=== PATIENT | female | born 1965 | race Caucasian/White ===

== ENCOUNTER 2017-04-25 22:15 | Emergency (ER) | payer OTHER ==
[~2017-04-25] VITALS: Ht 172.7 cm; Wt 9.0 kg
[2017-04-25 22:32] VITALS: TEMP 36.8; Ht 172.7 cm; Wt 9.0 kg
--- NOTE | 2017-04-25 23:04 | EMERGENCY ROOM VISIT NOTE ---
History Report prepared by Mary Jo: Venus Hicks Under the Supervision of: Dr. Alfredito Ricci M.D. First contact with patient: 22:56 Chief Complaint: FLANK PAIN Stated Complaint: R FLANK PAIN History of Present Illness The patient is a 51 year old female who presents to the Emergency Room with complaints of worsening right sided flank pain. She rates her discomfort as a 9/ 10 in severity. She admits to minor dysuria. She denies any abdominal pain. The patient denies any personal history of kidney stones. She also reports since December 2016, she has not had her menstrual period. Source of History: patient Onset: [employer] Position: back (right sided back) Symptom Intensity: 9/10 Timing: worsening Associated Symptoms: + urinary symptoms, No abdominal pain Review of Systems See HPI for pertinent positives & negatives. A total of 10 systems reviewed and were otherwise negative. Social History Smoking Status: Never Smoker Current/Historical Medications Scheduled Sulfa/Trimethoprim (Bactrim Ds 800MG/160MG), 1 TAB PO BID Scheduled PRN Oxycodone/Acetaminophen 5MG/325MG (Percocet 5MG/325MG), 1-2 TAB PO Q4H PRN for Pain Allergies Coded Allergies: No Known Allergies (Unverified , 04/25/17) Physical Exam Vital Signs Date Time Temp Pulse Resp B/P (MAP) Pulse Ox O2 Delivery O2 Flow Rate FiO2 04/26/17 01:39 100 20 140/84 97 04/26/17 00:30 108 20 152/91 98 Room Air 04/25/17 22:32 36.8 105 20 156/94 97 Room Air Physical Exam GENERAL: Patient is a healthy-appearing well-nourished 51 year old female HEAD: Normocephalic atraumatic EYES: Ocular movements intact pupils equal and react to light OROPHARYNX mucous membranes are moist no exudates present no erythema or edema present NECK: Supple no nuchal rigidity CHEST: Good equal expansion LUNGS: Clear and equal to auscultation CARDIAC: Normal S1 and S2 ABDOMEN: Soft nontender no guarding BACK: Right sided CVA tenderness EXTREMITIES: No pain upon palpation normal muscle strength in all groups no clubbing cyanosis or edema NEURO: Patient is following commands and answering questions appropriately. Alert and oriented x3 Cranial Nerves 2-12 grossly intact Medical Decision & Procedures ER Provider Diagnostic Interpretation: CT SCAN OF THE ABDOMEN AND PELVIS WITHOUT CONTRAST CLINICAL HISTORY: Right flank pain COMPARISON STUDY: No previous studies for comparison. TECHNIQUE: CT scan of the abdomen and pelvis was performed from the lung bases to the proximal femurs. Images are reviewed in the axial, sagittal, and coronal planes. IV contrast was not administered for this examination. A dose lowering technique was utilized adhering to the principles of ALARA. CT DOSE: 1686.87 mGy.cm FINDINGS: Lower chest: There are bibasilar dependent atelectatic changes Liver: The unenhanced liver is normal in size, contour, and attenuation. There is no intrahepatic biliary ductal dilatation. Gallbladder: Unremarkable. Spleen: This too small to characterize 8 mm hypodensity within the anterior aspect of the spleen. Pancreas: Unremarkable. Adrenal glands: Unremarkable. Kidneys: No renal, ureteral, or bladder calculi are visualized. 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 There is no acute diverticulitis. The appendix appears normal. Peritoneum: There is no intraperitoneal free air or abdominal ascites. Vasculature: The abdominal aorta is normal in course and caliber. Adenopathy: None. Pelvic viscera: The bladder, and pelvic viscera are unremarkable. Skeletal structures: There is right symphysis sclerosis. No destructive lesions are visualized. IMPRESSION: 1. No acute intra-abdominal or pelvic findings. 2. No evidence of bowel obstruction. No evidence of free air 3. Normal appendix 4. No renal, ureteral, or bladder calculi identified. Laboratory Results 04/25/17 23:30 Red Blood Count 4.93, Mean Corpuscular Volume 89.2, Mean Corpuscular Hemoglobin 30.6, Mean Corpuscular Hemoglobin Concent 34.3, Mean Platelet Volume 9.4, Neutrophils (%) (Auto) 59.1, Lymphocytes (%) (Auto) 30.7, Monocytes (%) (Auto) 8.5, Eosinophils (%) (Auto) 1.3, Basophils (%) (Auto) 0.2, Neutrophils # (Auto) 4.85, Lymphocytes # (Auto) 2.52, Monocytes # (Auto) 0.70, Eosinophils # (Auto) 0.11, Basophils # (Auto) 0.02 04/25/17 23:30 Test 04/25/17 23:10 04/25/17 23:30 Urine Color YELLOW Urine Appearance CLEAR (CLEAR) Urine pH 5.0 (4.5-7.5) Urine Specific [place] 1.019 (1.000-1.030) Urine Protein NEG (NEG) Urine Glucose (UA) NEG (NEG) Urine Ketones NEG (NEG) Urine Occult Blood TRACE (NEG) Urine Nitrite NEG (NEG) Urine Bilirubin NEG (NEG) Urine Urobilinogen NEG (NEG) Urine Leukocyte Esterase TRACE (NEG) Urine WBC (Auto) 1-5 /hpf (0-5) Urine RBC (Auto) 5-10 /hpf (0-4) Urine Hyaline Casts (Auto) 1-5 /lpf (0-5) Urine Epithelial Cells (Auto) >30 /lpf (0-5) Urine Bacteria (Auto) NEG (NEG) Urine Test NEG (NEG) White Blood Count 8.22 K/uL (4.8-10.8) Red Blood Count 4.93 M/uL (4.2-5.4) Hemoglobin 15.1 g/dL (12.0-16.0) Hematocrit 44.0 % (37-47) Mean Corpuscular Volume 89.2 fL (80-100) Mean Corpuscular Hemoglobin 30.6 pg (25-34) Mean Corpuscular Hemoglobin Concent 34.3 g/dl (32-36) Platelet Count 277 K/uL (130-400) Mean Platelet Volume 9.4 fL (7.4-10.4) Neutrophils (%) (Auto) 59.1 % Lymphocytes (%) (Auto) 30.7 % Monocytes (%) (Auto) 8.5 % Eosinophils (%) (Auto) 1.3 % Basophils (%) (Auto) 0.2 % Neutrophils # (Auto) 4.85 K/uL (1.4-6.5) Lymphocytes # (Auto) 2.52 K/uL (1.2-3.4) Monocytes # (Auto) 0.70 K/uL (0.11-0.59) Eosinophils # (Auto) 0.11 K/uL (0-0.5) Basophils # (Auto) 0.02 K/uL (0-0.2) RDW Standard Deviation 40.4 fL (36.4-46.3) RDW Coefficient of Variation 12.6 % (11.5-14.5) Immature Granulocyte % (Auto) 0.2 % Immature Granulocyte # (Auto) 0.02 K/uL (0.00-0.02) Anion Gap 9.0 mmol/L (3-11) Est Creatinine Clear Calc Drug Dose 10.3 ml/min Estimated GFR () 83.6 Estimated GFR (Non- 72.1 BUN/Creatinine Ratio 15.3 (10-20) Calcium Level 8.9 mg/dl (8.5-10.1) Total Bilirubin 0.5 mg/dl (0.2-1) Direct Bilirubin < 0.1 mg/dl (0-0.2) Aspartate Amino Transf (AST/SGOT) 14 U/L (15-37) Alanine Aminotransferase (ALT/SGPT) 27 U/L (12-78) Alkaline Phosphatase 79 U/L (45-117) Total Protein 7.8 gm/dl (6.4-8.2) Albumin 3.7 gm/dl (3.4-5.0) Lipase 267 U/L (73-393) Human Chorionic Gonadotropin, Quant < 1 mIU/mL Labs reviewed by ED physician. Medications Administered Medications (Trade) Dose Ordered Sig/Ignacio Route Start Time Stop Time Status Last Admin Dose Admin Sodium Chloride 1,000 ml @ 999 mls/hr Q1H1M STAT IV 04/25/17 23:07 04/26/17 00:07 DC 04/25/17 23:07 999 MLS/HR Ketorolac Tromethamine (Toradol Inj) 30 mg NOW STAT IV 04/25/17 23:07 04/25/17 23:10 DC 04/25/17 23:41 30 MG Ondansetron HCl (Zofran Inj) 4 mg NOW STAT IV 04/25/17 23:07 04/25/17 23:10 DC 04/25/17 23:40 4 MG Hydromorphone HCl (Dilaudid Inj) 0.5 mg NOW STAT IV 04/25/17 23:07 04/25/17 23:10 DC 04/25/17 23:41 0.5 MG Ceftriaxone Sodium (Rocephin Inj) 1 gm NOW STAT IV 04/26/17 00:39 04/26/17 00:41 DC 04/26/17 00:53 1 GM Trimethoprim/ Sulfamethoxazole (Sulfameth/ Trimeth Ds 800/ 160MG Home Pack) 1 homepack UD ONCE PO 04/26/17 00:45 04/26/17 00:46 DC 04/26/17 01:04 1 [place] Oxycodone/ Acetaminophen (Percocet 5/ 325MG Home Pack) 1 homepack UD ONCE PO 04/26/17 00:45 04/26/17 00:46 DC 04/26/17 01:04 1 [place] Course 2300: Past medical records reviewed. The patient was evaluated in room C7. A complete history and physical examination was performed. 2307: Dilaudid .5 mg IV, Zofran 4 mg IV, Toradol 30 mg IV, NSS 1000 ml @ 999 mls /hr IV. Medical Decision Prior records/ancillary studies reviewed. Triage Nursing notes reviewed. The patient's history was concerning for abdominal pain. Differential diagnosis: Etiologies such as appendicitis, diverticulitis, PUD, biliary pathology, UTI, pancreatitis, obstruction, mesenteric ischemia, aortic pathology, infections, inflammatory bowel disease, renal colic, as well as others were entertained. This is a 51-year-old female who presents emergency department over concerns that she is as well as flank pain. The patient has a negative test both [facility] urine as well as serum. She does have hematuria in her urine. CAT scan of the abdomen and pelvis does not show any acute process. It is possible that the patient is passing a very fine kidney stone. An IV was established, the patient given normal saline bolus. Repeat examination revealed improvement the patient's symptoms. I do feel that the patient as well as to be discharged home for follow-up with urology. Patient was in agreement with the treatment plan. Impression Primary Impression: Right flank pain Scribe Attestation The scribe's documentation has been prepared under my direction and personally reviewed by me in its entirety. I confirm that the note above accurately reflects all work, treatment, procedures, and medical decision making performed by me. Departure Information Dispostion Home / Self-Care Prescriptions Sulfa/Trimethoprim (Bactrim Ds 800MG/160MG) Tab 1 TAB PO BID for 7 Days, #14 TAB Prov: Alfredito Ricci MD 04/26/17 Oxycodone/Acetaminophen 5MG/325MG (PERCOCET 5MG/325MG) Tab 1-2 TAB PO Q4H Y for Pain, #14 TAB Prov: Alfredito Ricci MD 04/26/17 Referrals No Doctor, Assigned (PCP) Patient Instructions My [facility]
[2017-04-25] MEDS ORDERED: SODIUM CHLORIDE 0.9% 1000ML 1,000 ML IV STA (23:07)
[2017-04-25] MEDS ORDERED: HYDROmorphone INJ 0.5 MG/0.5 ML SYR IV STA (23:07)
[2017-04-25] MEDS ORDERED: KETOROLAC TROMETHAMINE 30 MG/ML VIAL IV STA (23:07)
[2017-04-25] MEDS ORDERED: ONDANSETRON INJ 2 MG/ML 2 ML VIAL IV STA (23:07)
[2017-04-25 23:44] LABS: BASO % 0.2 %; BASO ABS # 0.02 K/uL (0-0.2); COMPLETE YES; EOS % 1.3 %; IG% 0.2 %; LYMPH % 30.7 %; LYMPH ABS # 2.52 K/uL (1.2-3.4); MEAN CELL VOLUME 89.2 fL (80-100); MEAN CORPUSCULAR HEMOGLOBIN 30.6 pg (25-34); MEAN CORPUSCULAR HGB CONC 34.3 g/dl (32-36); MEAN PLATELET VOLUME 9.4 fL (7.4-10.4); MONO % 8.5 %; NEUT % 59.1 %; PLATELET COUNT 277 K/uL (130-400); RED BLOOD COUNT 4.93 M/uL (4.2-5.4); WHITE BLOOD COUNT 8.22 K/uL (4.8-10.8)
[2017-04-25 23:46] LABS: URINE APPEARANCE CLEAR (CLEAR); URINE BILIRUBIN NEG (NEG); URINE COLOR YELLOW; URINE EPITHELIAL CELL AUTO >30 /lpf (0-5); URINE NITRITE NEG (NEG); URINE SPECIFIC GRAVITY 1.019 (1.000-1.030); UROBILINOGEN NEG (NEG)
[2017-04-25 23:49] LABS: MANUAL MICROSCOPIC REQUIRED? NO; REVIEW REQ? NO
[2017-04-26 00:05] LABS: ALT/SGPT 27 U/L (12-78); AST/SGOT 14 U/L (15-37); BLOOD UREA NITROGEN 14 mg/dl (7-18); BUN/CREATININE RATIO 15.3 (10-20); CALCIUM 8.9 mg/dl (8.5-10.1); CARBON DIOXIDE 28 mmol/L (21-32); CHLORIDE 106 mmol/L (98-107); CREATININE 0.92 mg/dl (0.60-1.20); GLUCOSE 93 mg/dl (70-99); POTASSIUM 3.4 mmol/L (3.5-5.1); SODIUM 143 mmol/L (136-145)
[2017-04-26 00:08] LABS: ALKALINE PHOSPHATASE 79 U/L (45-117)
[2017-04-26] MEDS ORDERED: CEFTRIAXONE SOD INJ 1 GM ADDVIAL IV STA (00:39)
[2017-04-26] MEDS ORDERED: PERCOCET HOME PACK PO ONE (00:45)
[2017-04-26] MEDS ORDERED: SEPTRA DS HOME PACK 1 EA VIAL PO ONE (00:45)
[2017-04-26] MEDS ORDERED: SULF800T23 PO (00:51)
[2017-04-26] MEDS ORDERED: OXYC-57 PO (00:51)
[2017-04-26 01:39] VITALS: BP 140/84; PULSE 100; O2SAT 97
--- NOTE | 2017-04-26 06:38 | DIAGNOSTIC IMAGING REPORT ---
CT SCAN OF THE ABDOMEN AND PELVIS WITHOUT CONTRAST CLINICAL HISTORY: Right flank pain COMPARISON STUDY: No previous studies for comparison. TECHNIQUE: CT scan of the abdomen and pelvis was performed from the lung bases to the proximal femurs. Images are reviewed in the axial, sagittal, and coronal planes. IV contrast was not administered for this examination. A dose lowering technique was utilized adhering to the principles of ALARA. CT DOSE: 1686.87 mGy.cm FINDINGS: Lower chest: There are bibasilar dependent atelectatic changes Liver: The unenhanced liver is normal in size, contour, and attenuation. There is no intrahepatic biliary ductal dilatation. Gallbladder: Unremarkable. Spleen: This too small to characterize 8 mm hypodensity within the anterior aspect of the spleen. Pancreas: Unremarkable. Adrenal glands: Unremarkable. Kidneys: No renal, ureteral, or bladder calculi are visualized. 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 There is no acute diverticulitis. The appendix appears normal. Peritoneum: There is no intraperitoneal free air or abdominal ascites. Vasculature: The abdominal aorta is normal in course and caliber. Adenopathy: None. Pelvic viscera: The bladder, and pelvic viscera are unremarkable. Skeletal structures: There is right symphysis sclerosis. No destructive lesions are visualized. IMPRESSION: 1. No acute intra-abdominal or pelvic findings. 2. No evidence of bowel obstruction. No evidence of free air 3. Normal appendix 4. No renal, ureteral, or bladder calculi identified. Electronically signed by: Reji Garcia M.D. 04/26/2017 6:37 AM Dictated Date/Time: 04/26/2017 6:34 AM
== END 2017-04-26 01:43 | disposition home or self-care (01) ==
LOC: C.EDB 22:17 → C.EDC 04-26 01:43
DX: R10.9 Unspecified abdominal pain (principal)

== ENCOUNTER 2017-08-17 09:23 | Emergency (ER) | payer OTHER ==
[~2017-08-17] VITALS: Ht 172.7 cm; Wt 112.9 kg
[~2017-08-17 09:23] MED LIST: OXYC-57 PO
[2017-08-17 09:27] VITALS: TEMP 36.5; Ht 172.7 cm; Wt 112.9 kg
--- NOTE | 2017-08-17 09:53 | EMERGENCY ROOM VISIT NOTE ---
History Report prepared by Mary Jo: Shiela Alcantar Under the Supervision of: Dr. Theodore Hull M.D. First contact with patient: 09:31 Chief Complaint: KNEEPAIN Stated Complaint: L KNEE PAIN, [place]ARP History of Present Illness The patient is a 52 year old female who presents to the Emergency Room with complaints of constant left knee pain secondary to a fall occurring yesterday. The patient was walking down a hill and slipped on the ice. She fell and injured her left knee. She denies any other injury occurring. She denies LOC or hitting her head. The patient is currently complaining of pain in her left knee that she rates as a 7/10 in severity. Movement exacerbates her pain. She states that occasionally the pain shoots down her leg. The history was obtained with the help of the patient's daughter is translating for the patient. Source of History: patient, family Onset: yesterday Position: knee (left) Symptom Intensity: 7/10 Quality: other (shooting) Timing: constant Modifying Factors (Worsening): movement Associated Symptoms: No LOC Review of Systems See HPI for pertinent positives and negatives. A total of ten systems were reviewed and were otherwise negative. Past Medical & Surgical Medical Problems: (1) No significant medical problems Family History Patient reports no known family medical history. Social History Smoking Status: Never Smoker Smokeless Tobacco Use: No Alcohol Use: none Drug Use: none Housing Status: lives with family Occupation Status: employed Current/Historical Medications Scheduled PRN Ibuprofen (Motrin), 800 MG PO UD PRN for Pain Allergies Coded Allergies: No Known Allergies (Unverified , 08/17/17) Physical Exam Vital Signs Date Time Temp Pulse Resp B/P (MAP) Pulse Ox O2 Delivery O2 Flow Rate FiO2 08/17/17 09:27 36.5 78 18 155/82 96 Room Air Physical Exam Physical Exam GENERAL: She is oriented to person, place, and time. She appears well- developed and well-nourished. She does not appear distressed. HENT: Exam performed. Head: Normocephalic and atraumatic. Right Ear: External ear normal. No mastoid tenderness. Left Ear: External ear normal. No mastoid tenderness. Mouth/Throat: The oropharynx is clear and moist. No trismus in the jaw. No dental abscesses or uvula swelling. No oropharyngeal exudate or tonsillar abscesses. EYES: Conjunctivae and EOM are normal. Pupils are equal, round, and reactive to light. Right eye exhibits no discharge. Left eye exhibits no discharge. No scleral icterus. NECK: Normal range of motion. Neck supple. No JVD present. No spinous process tenderness present. No carotid bruit present. No rigidity. No tracheal deviation and normal range of motion present. No Brudzinski's sign and no Kernig 's sign noted. CV: Normal rate, regular rhythm, normal heart sounds and intact distal pulses. There is no peripheral edema. Palpable radial pulses bue. PULM/CHEST: Effort normal and breath sounds normal. No respiratory distress. No stridor. She has no wheezes. She has no rales. Chest Wall: She exhibits no tenderness. ABD: The abdomen is soft. Bowel sounds are normal. She has no distension. No mass is present. There is no tenderness. There is no rebound, no guarding, no Walsh's sign and no tenderness at McBurney's point. Rovsig negative MUSC/SKEL: Left knee - Frandy negative, posterior drawer negative, Philippe positive, valgus stress positive, stress pain on palpation of medial knee. Right knee- FROM no pain on palpation pelvis stable palpable dp pulses ble LYMPH: No cervical adenopathy. NEURO: She is alert and oriented to person, place, and time. She has normal strength. No cranial nerve deficit or sensory deficit. Coordination and gait normal. GCS eye subscore is 4. GCS verbal subscore is 5. GCS motor subscore is 6. cerbellar tests wnl. SKIN: Skin is warm and dry. She is not diaphoretic. PSYCH: She has a normal mood and affect. Her behavior is normal. Judgment and thought content normal. Medical Decision & Procedures ER Provider Diagnostic Interpretation: Radiology results as stated below per my review and radiologist interpretation: L KNEE 4 OR MORE VIEWS CLINICAL HISTORY: Knee pain status post trauma COMPARISON: None. DISCUSSION: No acute fractures or dislocations are visualized. There is no radiographic evidence of significant joint effusion. IMPRESSION: No fractures identified. Electronically signed by: Reji Garcia M.D. 08/17/2017 10:07 AM Dictated Date/Time: 08/17/2017 10:06 AM ED Course 0931: The patient was evaluated in room B4B. A complete history and physical exam was performed. 1016: I reassessed the patient at this time. She is feeling better and resting comfortably. I discussed the results and treatment plan with the patient and her daughter. I answered all pertaining questions that they had. They expressed understanding and verbalized agreement. The patient will be discharged home. Medical Decision Vital signs stable. Xrays negative. Patient placed in knee inmmobilizer discharged with follow-up orthopedics. Instructed to ice Q4 hours and Motrin as needed for pain. DISCHARGE - Plan of care discussed with family and questions answered. The family was given both verbal and printed discharge instructions. The family verbalized understanding and ability to comply. The family is to seek outpatient follow up as noted in the discharge instructions. The family verbalized understanding and ability to comply. The family is discharged in stable condition. The family was instructed to return for worsening symptoms. Medication Reconcilliation Current Medication List: was personally reviewed by me Blood Pressure Screening Patient's blood pressure: Elevated blood pressure Blood pressure disposition: Elevated BP felt to be situational Impression Primary Impression: Knee pain Scribe Attestation The scribe's documentation has been prepared under my direction and personally reviewed by me in its entirety. I confirm that the note above accurately reflects all work, treatment, procedures, and medical decision making performed by me. The scribe's documentation has been prepared under my direction and personally reviewed by me in its entirety. I confirm that the note above accurately reflects all work, treatment, procedures, and medical decision making performed by me. insert Departure Information Dispostion Home / Self-Care Referrals Tavares Red MD (PCP) Mason Hewitt, DO Forms HOME CARE DOCUMENTATION FORM, IMPORTANT VISIT INFORMATION Patient Instructions ED Immobilizer Knee, My [facility] Problem Qualifiers Primary Impression: Knee pain Chronicity: acute Laterality: unspecified laterality Qualified Codes: M25.569 - Pain in unspecified knee
[2017-08-17] MEDS ORDERED: IBUP-1428 PO (09:54)
--- NOTE | 2017-08-17 10:09 | DIAGNOSTIC IMAGING REPORT ---
L KNEE 4 OR MORE VIEWS CLINICAL HISTORY: Knee pain status post trauma COMPARISON: None. DISCUSSION: No acute fractures or dislocations are visualized. There is no radiographic evidence of significant joint effusion. IMPRESSION: No fractures identified. Electronically signed by: Reji Garcia M.D. 08/17/2017 10:07 AM Dictated Date/Time: 08/17/2017 10:06 AM
[2017-08-17 10:30] VITALS: BP 176/92; PULSE 77; O2SAT 97
== END 2017-08-17 10:31 | disposition home or self-care (01) ==
LOC: C.EDB 09:25
DX: M25.562 Pain in left knee (principal); W00.0XXA Fall on same level due to ice and snow, initial encounter

== ENCOUNTER 2024-10-11 18:54 | Inpatient (IN) ==
[2024-10-11 19:28] LABS: Basophils # (auto) 0.04 K/uL (0.00-0.20); Basophils % (auto) 0.6 %; Eosinophils # (auto) 0.03 K/uL (0.00-0.50); Eosinophils % (auto) 0.4 %; Hematocrit (blood only) 41.6 % (37.0-47.0); Hemoglobin 14.5 g/dl (12.0-16.0); Immature Granulocytes # (auto) 0.03 K/uL (0.01-0.20); Immature Granulocytes % (auto) 0.4 %; Lymphocytes # (auto) 1.61 K/uL (1.20-3.40); Lymphocytes % (auto) 23.3 %; Mean Corpuscular Hemoglobin 31.3 pg (25.0-34.0); Mean Corpuscular Hgb Conc 34.9 g/dL (32.0-36.0); Mean Corpuscular Volume 89.7 fL (80.0-100.0); Mean Platelet Volume 9.4 fL (9.4-12.4); Monocytes # (auto) 0.78 K/uL (0.11-0.59); Monocytes % (auto) 11.3 %; Neutrophils # (auto) 4.41 K/uL (1.40-6.50); Platelet Count 340 K/uL (130-400); RDW Coefficient of Variation 12.1 % (11.5-14.5); RDW Standard Deviation 39.5 fL (36.4-46.3); Red Blood Count 4.64 M/uL (4.20-5.40)
--- NOTE | 2024-10-11 19:35 | Emergency Department Note ---
Impression & Plan Chest pain, DUGAN (dyspnea on exertion), Weakness, Hypokalemia, Heart palpitations ED Provider Note Provider: Brock Noble MD CHIEF COMPLAINT: Short of breath, elevated heart rate, leg swelling HISTORY OF PRESENT ILLNESS: Patient is a 59-year-old female history of diastolic dysfunction, prediabetes, obesity presenting here today for by the primary care office. Was seen here last week with workup showing some hypokalemia. Has had continued shortness of breath and over last 2 days development of central chest discomfort as well as elevated heart rates in the 120s and generalized weakness. States has had some swelling of her legs but the left 1 pill a bit worse. Denies any falls or syncope. No fevers reported. No significant abdominal pain reported. Did complete potassium supplementation and finished this 2 days ago. Had blood work today in the outpatient setting showing continued low potassium levels. Her doctor wanted her to come back in for further care here but she had to go home and see her granddaughter briefly for her 10th birthday and then came here. States she feels like she is going to . Did attempt to use [place] translation services however after more than 15 minutes no gizzard puller was available on the electronic system. Patient agreed with her limited [place]ian and additional motions to continue as is. Reviewed office note. PAST MEDICAL HISTORY: As noted above MEDICATIONS: Reviewed home medications SOCIAL HISTORY: Lives at home by herself PHYSICAL EXAM: GENERAL: alert and oriented in no acute distress on stretcher Head: normocephalic and atraumatic EYES: No injection, discharge or icterus. PERRL, EOMI. NECK: Trachea midline. Supple. ENT: Mucous membranes pink and moist. Pharynx without erythema or exudate. LUNGS: Airway patent. No retractions. Breath sounds diminished bases but otherwise clear HEART: Regular tachycardic rate and rhythm. No chest wall tenderness ABDOMEN: Soft and non-tender, without guarding or rebound. SKIN: Acyanotic, warm, dry, without rashes EXTREMITIES: Without deformity with 1+ bilateral lower leg edema. No significant wounds noted or weeping. NEUROLOGICAL: No focal deficits. No aphasia. No facial droop or slurred speech. Ambulatory. EK bpm sinus tachycardia. No PVC or PAC. No acute ST segment elevation or depression with QTc of 458. CONTINUOUS CARDIAC MONITORING: was ordered and showed a heart rate of 100s-120s bpm in sinus tachycardia Patient's laboratory studies and imaging reviewed. Differential includes Infection, dehydration, metabolic abnormality, hypo/hyperglycemia, electrolyte disturbance, anemia, hypoxia, cardiac sources, PE, pneumonia, heart failure/fluid overload, DVT, neurologic, as well as other pathologies. IMPRESSION/MEDICAL DECISION MAKING: Reviewed workup from last week. CT of the chest at time of finding of PE. Similar symptoms now little bit of chest discomfort. EKG without STEMI. Is somewhat tachycardic. Does have some swelling of the lower legs. Ultrasound here to exclude DVT. No believe any repeat CTA at this time. Not hypoxic. COVID flu RSV testing sent but did have full respiratory panel last week that was negative. Is continued to be somewhat hypokalemic. Given oral and IV potassium replacement. Chest x-ray as a possible little bit of pulmonary vascular congestion by radiology. Do question if she is having again some heart failure issues and fluid overload. Given her significant symptoms, discussed further care at the hospital and further cardiac evaluation. Blood work here without severe anemia or leukocytosis. Normal troponin. BNP not severely elevated but will trial a dose of Lasix here. Discussed with the hospitalist team for further care. DIAGNOSIS: Atypical chest pain, shortness of breath, hypokalemia DISPOSITION: Hospitalist will evaluate Patient was agreeable with this plan. Past Med/Surg History Problem List (Updated 10/11/24 @ 20:27 by Brock Noble M.D.) Heart palpitations (Acute) Chest pain (Acute) Hypokalemia (Acute) Tachycardia (Acute) Weakness (Acute) DUGAN (dyspnea on exertion) (Acute) Medical History Obesity Surgical History H/O tubal ligation Social History Smoking Status: Never smoker Preferred Language: [place] Communication Tools: IPad Feels Safe at Home: Yes Allergies Allergies Allergy/AdvReac Type Severity Reaction Status Date / Time No Known Allergies Allergy Verified 10/02/24 15:34 Home Meds Home Medications Medication Instructions Recorded Confirmed losartan 50 mg tablet 50 mg PO DAILY 12/27/20 10/11/24 rosuvastatin 20 mg tablet 20 mg PO DAILY 12/27/20 10/11/24 hydrochlorothiazide 25 mg tablet 25 mg PO DAILY 10/02/24 10/11/24 tirzepatide (weight loss) 7.5 7.5 mg subcut WK 10/02/24 10/11/24 mg/0.5 mL subcutaneous pen injector (Zepbound) Previous Rx's Medication Instructions Recorded albuterol sulfate 90 mcg/actuation 2 inh inhalation Q6H #18 grams 10/02/24 aerosol inhaler potassium chloride 20 mEq 20 meq PO DAILY #7 tabs 10/02/24 tablet,extended release Results & Data (ED) Vital Signs Vital Signs - 24 hr 10/11/24 18:54 10/11/24 18:57 10/11/24 19:05 Temperature 37 C Temperature Source Temporal Artery Scan Pulse Rate 113 H Pulse Rate [Right Brachial] Pulse Rhythm Regular Pulse Rhythm [Right Brachial] Pulse Strength Normal Pulse Strength [Right Brachial] Respiratory Rate 22 Respiratory Effort / Characteristics Non-Labored Spontaneous Respiratory Depth Normal Respiratory Pattern Regular Blood Pressure 126/65 Blood Pressure [Right Arm] Blood Pressure Mean 85 Blood Pressure Mean [Right Arm] Blood Pressure Position Sitting Blood Pressure Position [Right Arm] Pulse Oximetry 96 Oxygen Delivery Method Room Air Room Air Room Air Sepsis Recent Fever Within 48 Hours No Sepsis New/Unexplained Change in Mental Status N/A Sepsis Action Taken by Nursing No Action Required 10/11/24 19:05 10/11/24 19:24 10/11/24 20:54 Temperature Temperature Source Pulse Rate 108 H Pulse Rate [Right Brachial] 108 H Pulse Rhythm Pulse Rhythm [Right Brachial] Regular Pulse Strength Pulse Strength [Right Brachial] Normal Respiratory Rate 18 Respiratory Effort / Characteristics Non-Labored Respiratory Depth Normal Respiratory Pattern Regular Blood Pressure Blood Pressure [Right Arm] 130/99 Blood Pressure Mean Blood Pressure Mean [Right Arm] 109 Blood Pressure Position Blood Pressure Position [Right Arm] Sitting Pulse Oximetry 98 96 Oxygen Delivery Method Room Air Room Air Sepsis Recent Fever Within 48 Hours Sepsis New/Unexplained Change in Mental Status Sepsis Action Taken by Nursing Laboratory Data 10/11/24 19:15 10/11/24 19:15 Lab Results 10/11/24 Range/Units 19:15 WBC 6.90 (4.8-10.8) K/ul RBC 4.64 (4.20-5.40) M/uL Hgb 14.5 (12.0-16.0) g/dl Hct 41.6 (37.0-47.0) % MCV 89.7 (80.0-100.0) fL MCH 31.3 (25.0-34.0) pg MCHC 34.9 (32.0-36.0) g/dL RDW Std Deviation 39.5 (36.4-46.3) fL RDW Coeff of Abi 12.1 (11.5-14.5) % Plt Count 340 (130-400) K/uL MPV 9.4 (9.4-12.4) fL Immature Gran % (Auto) 0.4 % Neut % (Auto) 64.0 % Lymph % (Auto) 23.3 % [place] % (Auto) 11.3 % Eos % (Auto) 0.4 % Baso % (Auto) 0.6 % Neut # (Auto) 4.41 (1.40-6.50) K/uL Lymph # (Auto) 1.61 (1.20-3.40) K/uL [place] # (Auto) 0.78 H (0.11-0.59) K/uL Eos # (Auto) 0.03 (0.00-0.50) K/uL Baso # (Auto) 0.04 (0.00-0.20) K/uL Immature Gran # (Auto) 0.03 (0.01-0.20) K/uL PT 10.5 (9.0-12.0) Seconds INR 1.0 (0.9-1.1) APTT 26 (21-31) Seconds PTT Ratio 1.0 D-Dimer 860 H* (0-500) ug/L FEU Sodium 137 (136-145) mmol/L Potassium 2.9 L (3.5-5.1) mmol/L Chloride 100 (98-107) mmol/L Carbon Dioxide 28 (21-32) mmol/L Anion Gap 9 (3-11) BUN 8 (6-23) mg/dl Creatinine 0.95 (0.6-1.2) mg/dl Est Cr Clr Drug Dosing 90.6 ml/min eGFR 69.02 BUN/Creatinine Ratio 8.4 L (10-20) Glucose 149 H (70-99(Fasting)) mg/dl Calcium 9.2 (8.6-10.3) mg/dl Total Bilirubin 0.8 (0.2-1.0) mg/dl AST 40 H (13-39) U/L ALT 44 (7-52) U/L Alkaline Phosphatase 62 (34-104) U/L Troponin I High Sens 6.5 (0-14) pg/ml B-Natriuretic Peptide 5 (0-100) pg/ml Total Protein 6.9 (6.0-8.3) gm/dl Albumin 3.9 (3.4-5.0) gm/dl Globulin 3.0 (2.5-4.0) gm/dl Albumin/Globulin Ratio 1.3 (0.9-2) Administered Medications Potassium Chloride (Potassium Chloride Crtab 20 Meq Tabcr) 40 meq PO TID EULALIO Stop: 10/12/24 21:01 Last Admin: 10/11/24 23:04 Dose: 40 meq Documented By: RODDY Discontinued Medications Furosemide (Furosemide Inj 20 Mg/2 Ml Vial) 20 mg IV ONE ONE Stop: 10/11/24 20:27 Last Admin: 10/11/24 21:21 Dose: 20 mg Documented By: RODDY Potassium Chloride (K Prashanth / Wtr) 10 meq in 100 mls @ 100 mls/hr IV ONE ONE Stop: 10/11/24 20:47 Last Infusion: 10/11/24 21:40 Dose: Infused Documented By: Admin: 10/11/24 20:39 Dose: 100 mls/hr Documented By: RODDY Ioversol (Optiray 320 125ml) 125 ml IV ONCE ONE Stop: 10/11/24 22:51 Last Admin: 10/11/24 22:50 Dose: 118 ml Documented By: LANE Potassium Chloride (Potassium Chloride Crtab 20 Meq Tabcr) 40 meq PO NOW STA Stop: 10/11/24 19:49 Last Admin: 10/11/24 20:34 Dose: 40 meq Documented By: RODDY Imaging Data Radiologist's Impression: Chest X-Ray 10/11/24 19:05 INDICATION: Chest pain. TECHNIQUE: Frontal radiograph of the chest. COMPARISON: Radiograph from 10/02/2024. FINDINGS: Cardiomegaly. Mild pulmonary vascular congestion. No infiltrate, pleural effusion or pneumothorax. No acute osseous abnormality evident. IMPRESSION: Mild pulmonary vascular congestion. Electronically signed by Long Correa 10-11-2024 7:37 PM Venous Doppler Study 10/11/24 19:48 Exam(s): US VENOUS BILATERAL LOWER EXTREMITIES EXAM: US Duplex Bilateral Lower Extremities Veins CLINICAL HISTORY: Reason for exam: swelling. TECHNIQUE: Real-time duplex ultrasound scan of the bilateral lower extremity veins integrating B-mode two-dimensional vascular structure, Doppler spectral analysis, color flow Doppler imaging and compression. COMPARISON: No relevant prior studies available. FINDINGS: Right deep veins: Unremarkable. The visualized deep veins of the right lower extremity are compressible with color flow. No visualized thrombus. Right superficial veins: Unremarkable. Left deep veins: Unremarkable. The visualized deep veins of the left lower extremity are compressible with color flow. No visualized thrombus. Left superficial veins: Unremarkable. No visualized thrombus in the GSV. Soft tissues: No acute findings. IMPRESSION: No DVT in the bilateral lower extremities. Electronically signed by: Anand Bernal MD 10/11/24 21:01 PM Discharge Plan Visit Data Chief Complaint: Shortness of Breath/Dyspnea Stated Complaint: SOB, WEAKNESS ED Provider: Brock Noble Discharge Problem: Chest pain, DUGAN (dyspnea on exertion), Weakness, Hypokalemia, Heart palpitations Patient Disposition: Being Evaluated by Hospitalist
[2024-10-11 19:45] LABS: Albumin Globulin Ratio 1.3 (0.9-2); Albumin Level 3.9 gm/dl (3.4-5.0); BUN Creatinine Ratio 8.4 (10-20); Bilirubin,Total 0.8 mg/dl (0.2-1.0); Calcium 9.2 mg/dl (8.6-10.3); Creatinine Clr Calc Pharmacy 90.6 ml/min; Potassium 2.9 mmol/L (3.5-5.1); Total Protein 6.9 gm/dl (6.0-8.3)
[2024-10-11 19:53] LABS: Troponin I High Sensitivity 6.5 pg/ml (0-14)
[2024-10-11 19:55] LABS: Partial Thromboplastin Time 26 Seconds (21-31); Prothrombin Time 10.5 Seconds (9.0-12.0)
[2024-10-11] MEDS: POTASSIUM CHLORIDE CRTAB 20 MEQ TABCR PO STA (20:34)
[2024-10-11] MEDS: POTASSIUM CHLORIDE / WTR 10 MEQ/100 ML PLCT IV ONE (20:39)
--- NOTE | 2024-10-11 21:01 | Ultrasound Report ---
Exam(s): US VENOUS BILATERAL LOWER EXTREMITIES EXAM: US Duplex Bilateral Lower Extremities Veins CLINICAL HISTORY: Reason for exam: swelling. TECHNIQUE: Real-time duplex ultrasound scan of the bilateral lower extremity veins integrating B-mode two-dimensional vascular structure, Doppler spectral analysis, color flow Doppler imaging and compression. COMPARISON: No relevant prior studies available. FINDINGS: Right deep veins: Unremarkable. The visualized deep veins of the right lower extremity are compressible with color flow. No visualized thrombus. Right superficial veins: Unremarkable. Left deep veins: Unremarkable. The visualized deep veins of the left lower extremity are compressible with color flow. No visualized thrombus. Left superficial veins: Unremarkable. No visualized thrombus in the GSV. Soft tissues: No acute findings. IMPRESSION: No DVT in the bilateral lower extremities. Electronically signed by: Anand Bernal MD 10/11/24 21:01 PM
[2024-10-11] MEDS: FUROSEMIDE INJ 20 MG/2 ML VIAL IV ONE (21:21)
[2024-10-11] MEDS ORDERED: ACETAMINOPHEN 325 MG TAB PO PRN (21:49)
--- NOTE | 2024-10-11 21:49 | History & Physical Report ---
Date of Service October 11, 2024 Assessment & Plan (1) DUGAN (dyspnea on exertion): (2) Heart palpitations: (3) Hypokalemia: Plan Patient is a 59-year-old female with past medical history of prediabetes, hyperlipidemia, hypertension, class III obesity presents to the hospital with progressive shortness of breath for 3 weeks. She also reports intermittent chest discomfort and palpitation. Patient was seen by her primary care doctor; was referred for ED evaluation. Dyspnea on exertion Possible Acute on Chronic CHFpEF Patient presents with progressive shortness of breath for last 3 weeks, intermittent chest discomfort and palpitation. CTA chest done on 10/02no PE EKG on admission shows normal sinus rhythm, no significant ST or T wave changes. High sensitive troponin negative Chest x-ray on admission-mild pulmonary congestion D-dimer elevated to 860 Last echocardiogram on June 2023 days EF of 55 to 60% with grade 1 diastolic dysfunction Obtain CTA chest given elevated D-dimer Given patient's clinical presentation/CXR, concern for acute onset of CHF; will start IV Lasix 20 mg IV twice daily. Daily weights, strict RODOLFO's Will consult cardiology for possible stress test (inpatient versus outpatient). Obtain echocardiogram Hypokalemiapotassium 40 mEq 3 times daily. BMP daily. Hold hydrochlorothiazide. Chronic conditions; Hypertensioncontinue losartan. Hydrochlorothiazide on hold Hyperlipidemiacontinue on rosuvastatin Full code DVT prophylaxis Lovenox Time spent evaluating patient, direct bedside care, chart review, placing orders, interpretation of diagnostic studies, discussion with consultants, patient, and family members, as well as other required patient management activities is 75 minutes Please note the above document was generated using voice recognition software. It may contain grammatical, syntax or spelling errors. Any formal questions or concerns about the content, text or information contained within the body of this dictation should be directly addressed to the provider for clarification History of Present Illness Chief Complaint: Progressive shortness of breath for 3 weeks Primary Care Provider: Tavares Red MD History obtained from interview with the patient and chart review Past medical history of prediabetes, hyperlipidemia, hypertension, class III obesity, asymptomatic microscopic hematuria Patient reports that she has been experiencing increasing shortness of breath for last 3 weeks; it has progressed to a point where she gets short of breath on minimal exertion. She also reports some chest discomfort as well intermittent ly; denies chest pain. She has also noted episode of palpitations when she gets out of breath upto 120bpm. She has also noticed that her lower extremity swelling has increased in last few weeks. She denies any recent travel, viral illness, cough, fever, chills, abdominal pain or urinary symptoms. She had previously presented to the ED on 10/02 with similar concerns. CTA chest and chest x-ray was done which did not show significant finding. She was found to have hypokalemia for which she was given potassium supplement. She went to see her primary care doctor today with similar complaint; was sent to the ED for further workup Last echocardiogram from June 2023; EF of 55 to 60%; grade 1 diastolic dysfunction. Last stress test in May 2020 with myocardial perfusion scan; negative On presentation to the ED, she is normotensive, tachycardic, afebrile and saturating well on room air. Chest x-ray showed mild vascular congestion. BMP showed potassium of 2.9. Patient was given 1 dose of IV Lasix and potassium. Patient was referred for admission. Past surgical history; tonsillectomy Family history; father with Parkinson's, Social history; does not smoke, no alcohol use Medications; rosuvastatin, Geodon, hydrochlorothiazide, losartan Allergies Allergy/AdvReac Type Severity Reaction Status Date / Time No Known Allergies Allergy Verified 10/02/24 15:34 Home Medications Medication Instructions Recorded Confirmed Type losartan 50 mg tablet 50 mg PO DAILY 12/27/20 10/11/24 History rosuvastatin 20 mg tablet 20 mg PO DAILY 12/27/20 10/11/24 History albuterol sulfate 90 mcg/actuation 2 inh inhalation Q6H #18 grams 10/02/24 10/11/24 Rx aerosol inhaler hydrochlorothiazide 25 mg tablet 25 mg PO DAILY 10/02/24 10/11/24 History potassium chloride 20 mEq 20 meq PO DAILY #7 tabs 10/02/24 10/11/24 Rx tablet,extended release tirzepatide (weight loss) 7.5 7.5 mg subcut WK 10/02/24 10/11/24 History mg/0.5 mL subcutaneous pen injector (Zepbound) Past Med/Surg History Problem List (Updated 10/11/24 @ 20:27 by Brock Noble M.D.) Heart palpitations (Acute) Chest pain (Acute) Hypokalemia (Acute) Tachycardia (Acute) Weakness (Acute) DUGAN (dyspnea on exertion) (Acute) Medical History Obesity Surgical History H/O tubal ligation Social History Smoking Status: Never smoker Preferred Language: [place]ian Communication Tools: IPad Feels Safe at Home: Yes Review of Systems Review of Systems: All systems reviewed & are unremarkable except as noted in Subjective Physical Exam Physical Exam: On physical examination; Constitutional: Alert oriented x 3; appears to be short of breath on minimal exertion. Neck: trachea midline, no thyromegaly normal visual inspection Respiratory: crackles at bases Cardiovascular: RRR, no murmur, no edema Vessels: no JVD or carotid bruit Chest: normal inspection of chest Abdomen: normal bowel sounds, soft, nontender, no hepatosplenomegaly Musculoskeletal: 1+ pitting edema in bilateral lower extremity Neurologic: PERRL, EOMI, accommodation nl, no face palsy, no dysarthria CN's II- XI intact bilaterally and moves all extremities Psychiatric: A+Ox3, euthymic affect Results & Data Results & Data Vital Signs (Past 12 Hours) Vital Signs Temp Pulse Resp BP Pulse Ox O2 Del Method 10/11/24 19:24 108 H 10/11/24 19:05 98 Room Air 10/11/24 19:05 Room Air 10/11/24 18:57 37 C 113 H 22 126/65 96 Room Air 10/11/24 18:54 Room Air
[2024-10-11 22:03] LABS: D Dimer 860 ug/L FEU (0-500)
[2024-10-11] MEDS: OPTIRAY 320 125ml IV ONE (22:50)
[2024-10-11 22:59] LABS: Influenza A virus by PCR Negative (Neg); Influenza B virus by PCR Negative (Neg); RSV by PCR Negative (Neg); SARS CoV2 RNA(COVID-19) Ceph NEGATIVE (Negative)
[2024-10-11] MEDS: POTASSIUM CHLORIDE CRTAB 20 MEQ TABCR PO SCH (23:04)
--- NOTE | 2024-10-12 01:57 | CT Scan Report ---
Exam(s): CTA CHEST IV Amt: 118 ml optiray 320 EXAM: CT Angiography Chest With Intravenous Contrast CLINICAL HISTORY: Reason for exam: elevate d-dimer. TECHNIQUE: Axial computed tomographic angiography images of the chest with intravenous contrast. CTDI is 28.14 mGy and DLP is 857.16 mGy-cm. Automated exposure control was utilized for the study. A dose lowering technique was utilized adhering to the principles of ALARA. MIP reconstructed images were created and reviewed. COMPARISON: No relevant prior studies available. FINDINGS: Pulmonary arteries: Unremarkable. No pulmonary embolism. Aorta: No acute findings. No thoracic aortic aneurysm. No dissection. Lungs: Subsegmental atelectasis/scarring at the lung bases. No mass. No consolidation. Pleural space: Unremarkable. No significant effusion. No pneumothorax. Heart: Cardiomegaly. No RV strain, pericardial effusion, or significant coronary artery calcification. Bones/joints: No acute fracture. No dislocation. Soft tissues: Unremarkable. Lymph nodes: Unremarkable. No enlarged lymph nodes. IMPRESSION: No evidence of acute pulmonary embolism. Electronically signed by: Mario Bacon M.D. 10/12/24 01:56 AM
[2024-10-12] MEDS: FUROSEMIDE INJ 20 MG/2 ML VIAL IV SCH (06:22)
[2024-10-12 08:17] LABS: Anion Gap 8 (3-11); Calcium 8.8 mg/dl (8.6-10.3); Carbon Dioxide 28 mmol/L (21-32); Chloride 102 mmol/L (98-107); Sodium 138 mmol/L (136-145)
[2024-10-12 08:24] LABS: BUN Creatinine Ratio 8.6 (10-20); Blood Urea Nitrogen 6 mg/dl (6-23); Creatinine Clr Calc Pharmacy 122.5 ml/min; Glucose 111 mg/dl (70-99(Fasting))
--- OUTSIDE RECORDS SUMMARY | 2024-10-12 08:42 | External Medical Summary ---
Author Name Unknown Address Unknown Organization [id number]:[facility] [place] [address] Laboratory Report Ordering Provider Test Date Status CYNDIE CONTRERAS 10/11/2024 14:21:07 Final Observation Date Value Abnormality Reference (Units ) Status Magnesium 10/11/2024 14:21:07 1.8 1.5-2.6 (m g/dL) Final Performing Location [facility] [place] [id number]
--- OUTSIDE RECORDS SUMMARY | 2024-10-12 08:42 | External Medical Summary ---
Author Name Unknown Address Unknown Organization [id number]:[facility] [place] [address] Laboratory Report Ordering Provider Test Date Status CYNDIE CONTRERAS 10/11/2024 14:21:07 Final Observation Date Value Abnormality Reference (Units ) Status BUN 10/11/2024 14:21:07 8 6-20 (mg/dL) Final Creatinine 10/11/2024 14:21:07 0.8 0.5-1.0 (mg/dL) Final Glomerular filtration rate/1.73 sq M.predicted [Volume Rate/Area] in Serum, Plasma or Blood by Creatinine-based formula (CKD-EPI) 10/11/2024 14:21:07 87 >=60 (mL/min) Final eGFR is calculated based on the CKD-EPI 2020 equation. Sodium 10/11/2024 14:21:07 140 135-146 (m mol/L) Final Potassium 10/11/2024 14:21:07 3.1 Below low normal 3.5 -5.1 (mmol/L) Final Cl 10/11/2024 14:21:07 98 98-107 (mm ol/L) Final CO2 10/11/2024 14:21:07 31 22-32 (mmo l/L) Final Anion gap 10/11/2024 14:21:07 11 7-15 (mmol /L) Final Glucose 10/11/2024 14:21:07 163 Above high normal 70 -120 (mg/dL) Final Calcium 10/11/2024 14:21:07 9.9 8.4-10.2 ( mg/dL) Final Performing Location [facility] [place] [address]
--- OUTSIDE RECORDS SUMMARY | 2024-10-12 08:42 | External Medical Summary | Summary of Care ---
Author Name Unknown Organization [facility] Address [address] [place] [address] Phone [phone] Care Team Providers Care Software Development Manager Name Role Phone Tavares Red MD Primary Care Provider + Reason for Visit * Reason Comments Outpatient Testing Encounter Details Date Type Department Care Team (Late st Contact Info) Description 10/04/2024 2:30 PM EDT Laboratory Laboratory [facility] [address] [place] [phone] [place], [address] [place] [address] Hypokalemia Allergies No known active allergiesdocumented as of this encounter (statuses as of 10/04/2024) Medications Vitamin E 200 UNIT Oral Tablet Take by mouth. Act brian NATURAL SUPPLEMENT Take by mouth daily. omega 3 Active SURGICAL COMPRESSION STOCKING 20 to 30mm knee high compression bilateral legs 2 Each 2 11/25/19 24 Active Additional Information Patient not taking.Reported on 08/23/2024 Losartan Potassium 50 MG Oral Tablet (Cozaar)Indication s:Hypertension goal BP (blood pressure) < 140/90 TAKE 1 TABLET BY MOUTH ONCE DAILY 90 Tablet 3 03/23/20 24 Active hydroCHLOROthiazid e 25 MG Oral Tablet (Hydrodiuril)Indic ations:Essential hypertension with goal blood pressure less than 130/80 TAKE 1 TABLET BY MOUTH EVERY MORNING 90 Tablet 1 06/18/20 24 Active PreserVision AREDS 2+Multi Vit Oral Capsule Take 1 Capsule by mouth in the morning and 1 Capsule before bedtime. Active Rosuvastatin Calcium 20 MG Oral Tablet (Crestor)Indicatio ns:Mixed hyperlipidemia TAKE 1 TABLET BY MOUTH ONCE DAILY 90 Tablet 3 09/16/19 25 Active Zepbound 7.5 MG/0.5ML Subcutaneous Solution Auto-injector (Tirzepatide-Weigh t Management) Inject 7.5 mg under the skin once a week. 2 mL 1 09/25/2024 8:30 AM EDT 09/25/19 25 Active documented as of this encounter (statuses as of 10/04/2024) Active Problems Problem Noted Date Diagnosed Date Closed fracture of medial plateau of left tibia 07/25/2024 Insufficiency fracture 07/25/2024 Fatty liver 07/05/2023 Body mass index (BMI) of 45.0 to 49.9 in adult 1 08/21/2022 Overview: Per Obesity protocol - Per Obesity protocol Prediabetes 03/16/2023 History of Helicobacter pylori infection 023 Mixed hyperlipidemia 05/18/2020 Diastolic dysfunction 05/08/2020 Essential hypertension with goal blood pressure less than 130/80 05/08/2020 ABIGAIL III (cervical intraepith elial neoplasia grade III) with severe dysplasia 05/18/2019 Asymptomatic microscopic hematuria 04/27/2017 documented as of this encounter (statuses as of 10/04/2024) Resolved Problems Problem Noted Date Diagnosed Date Resolved Date Hypothyroidism due to acquir ed atrophy of thyroid 09/08/2022 12/01/2022 Abnormal biliary HIDA scan 08/28/2021 0 11/23/2023 Overview (08/28/2021): 2020 - saw surgery, was deferred Closed fracture of glenoid c avity and neck of left scapula with routine healing 03/19/20212023 Body mass index (BMI) of 40. 0 to 44.9 in adult 11/18/2020 06/23/2023 Overview: Per Obesity protocol Neuropathy 09/10/2020 11/23/2023 No abnormality seen 04/27/20 17 documented as of this encounter (statuses as of 10/04/2024) Immunizations Name Administration Dates Next Due TDAP (age 10 and older)(Boostrix) 10/29/2015 documented as of this encounter Social History Tobacco Use Types Packs/Day Years Used Date Smoking Tobacco: Never Smokeless Tobacco: Never Alcohol Use Standard Drinks/Week Comments No 0 (1 standard drink = 0.6 oz pur e alcohol) PHQ-2 Answer Date Recorded PHQ Adult Total Score 0 01/04/2024 Hunger Vital Sign Answer Date Recorded Within the past 12 months, y ou worried that your food would run out before you got the money to buy more. Never true 08/18/19 23 Within the past 12 months, t he food you bought just didn't last and you didn't have money to get more. 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 [address] [place] [phone] Lisandro Ngo MD [address] [place] [phone] 11/29/2024 2:30 PM EDT Office Visit Orthopaedics [facility] [address] [phone] Constantino Rasheed DO [address] [place] [id number] 12/20/2024 2:40 PM EDT Office Visit Nutrition & Weight Management, [facility] [address] [phone] Blanca Thompson MD [address] [place] [address] 01/23/2025 12:40 PM EDT Office Visit General Internal Medicine [facility] [address] [place] [address] Tavares Red MD [address] [place] [address] Health Maintenance Due Date Last Done Comments Hepatitis B Vaccine (1 of 3 - 19+ 3-dose series) 1984 Pneumococcal Vaccine: 50+ Years (1 of 2 - PCV) 1984 HPV/Co-Test 1995 Mammogram 2005 Cologuard 2010 Colonoscopy 2010 Sigmoidoscopy 2010 Zoster Vaccines (1 of 2) 2015 Cervical Cancer Screening 05/18/2020 Pap Smear 05/18/2020 05/18/2017 COVID-19 Vaccine ( - season) 2024 Influenza Vaccine (FLU shot) (#1) 2024 Colorectal Cancer Screening 03/31/2024 Fecal Occult Blood Test 03/31/2024 03/31/20, 05/06/2017, 10/29/2015 Depression Screening 01/03/2025 01/04/2024 Albumin/Creatinine Ratio 05/28/2025 05/28/2022 HbA1c 07/26/2025 07/26/2024, 02/10, 08/28/2021 GFR 10/04/2025 10/04/2024, 07/13, 07/26/2024, Additional history exists DTap/Tdap Vaccines (2 - Td or Tdap) 10/28/2025 10/29/2015 Lipid Panel 07/26/2029 07/26/2024, 11/2023, 05/28/2022, Additional history exists HPV (Gardasil) Vaccine Aged Out No lo nger eligible based on patient's age to complete this topic MENINGOCOCCAL (MENACTRA/MENVEO) Aged Out No longer eligible based on patient's age to complete this topic Meningitis B Vaccine (Bexsero/Trumemba) Aged Out No longer eligible based on patient's age to complete this topic documented as of this encounter Medical Devices Not on filedocumented as of this encounter Procedures Procedure Name Priority Date/Time Associated Diagnosis Comments BASIC METABOLIC PANEL Routine 10/04/2024 2:31 PM EDT Hypokalemia PHOSPHORUS Routine 10/04/2024 2:31 PM EDT Hypokalemia MAGNESIUM Routine 10/04/2024 2:31 PM EDT Hypokalemia documented in this encounter Results * PHOSPHORUS (10/04/2024 2:31 PM EDT) Phosphorus 3.6 2.5 - 4.8 mg/dL 10/04/2024 3:28 PM EDT [place] [address] Blood Venous blood specimen / Unknown Venipuncture / Unknown 10/04/2024 2:31 PM EDT 10/04/2024 2:31 PM EDT Blanca Thompson MD LAB BLOOD ORDERABLES Final Resu lt [facility] [address] [place] [address] * MAGNESIUM (10/04/2024 2:31 PM EDT) Magnesium 1.8 1.5 - 2.6 mg/dL 10/04/2024 3:28 PM EDT [facility] [address] Blood Venous blood specimen / Unknown Venipuncture / Unknown 10/04/2024 2:31 PM EDT 10/04/2024 2:31 PM EDT Blanca Thompson MD LAB BLOOD ORDERABLES Final Resu lt [facility] [address] [place] [address] * BASIC METABOLIC PANEL (10/04/2024 2:31 PM EDT) BUN 8 6 - 20 mg/dL 10/04/2024 3:28 PM EDT [facility] 56- CREATININE 0.8 0.5 - 1.0 mg/dL 10/04/2024 3:28 PM EDT [facility] 56- EGFR 82 >=60 mL/min 10/04/2024 3:28 PM EDT [facility] 56- Comment:eGFR is calculated b ased on the CKD-EPI 2020 equation. SODIUM 140 135 - 146 mmol/L 10/04/2024 3:28 PM EDT [facility] 56- POTASSIUM 3.5 3.5 - 5.1 mmol/L 10/04/2024 3:28 PM EDT [facility] 56- CHLORIDE 100 98 - 107 mmol/L 10/04/2024 3:28 PM EDT [facility] 56- CO2 28 22 - 32 mmol/L 10/04/2024 3:28 PM EDT [facility] 56- ANION GAP 12 7 - 15 mmol/L 10/04/2024 3:28 PM EDT [facility] 56- GLUCOSE 107 70 - 120 mg/dL 10/04/2024 3:28 PM EDT [facility] 56- CALCIUM 10.1 8.4 - 10.2 mg/dL 10/04/2024 3:28 PM EDT [facility] 56 Blood Venous blood specimen / Unknown Venipuncture / Unknown 10/04/2024 2:31 PM EDT 10/04/2024 2:31 PM EDT us Blanca Thompson MD LAB BLOOD ORDERABLES Final Resu lt [facility] [address] [place] [address] documented in this encounter Visit Diagnoses Diagnosis Hypokalemia Hypopotassemia documented in this encounter Care Teams Software Development Manager Relationship Specialty Start Date End Date Tavares Red MD [address] [facility] [place] [address] PCP - General Internal Medicine 11/09/17 documented as of this encounter
--- OUTSIDE RECORDS SUMMARY | 2024-10-12 08:42 | External Medical Summary ---
Author Name Unknown Address Unknown Organization [id number][facility] [place] [address] Laboratory Report Ordering Provider Test Date Status WHITNEY SOOD 10/04/2024 14:31:05 Final Observation Date Value Abnormality Reference (Units ) Status Magnesium 10/04/2024 14:31:05 1.8 1.5-2.6 (m g/dL) Final Performing Location [facility] [place] [address]
--- OUTSIDE RECORDS SUMMARY | 2024-10-12 08:42 | External Medical Summary ---
Author Name Unknown Address Unknown Organization [id number]:[facility] [address] Laboratory Report Ordering Provider Test Date Status DO DIANEMARCO 10/11/2024 14:21:07 Final Observation Date Value Abnormality Reference (Units ) Status WBC, Total 10/11/2024 14:21:07 6.37 4.00-10.8 0 (K/uL) Final RBC 10/11/2024 14:21:07 4.55 3.85-5.15 (M/uL) Final Hemoglobin 10/11/2024 14:21:07 14.7 12.0-15.3 (g/dL) Final HCT 10/11/2024 14:21:07 43.2 36.0-45.2 (%) Final MCV 10/11/2024 14:21:07 94.9 81.5-97.5 (fL) Final MCH 10/11/2024 14:21:07 32.3 27.0-34.0 (pg) Final MCHC 10/11/2024 14:21:07 34.0 32.0-36.0 (g/dL) Final RDW 10/11/2024 14:21:07 12.6 11.5-15.5 (%) Final Platelets 10/11/2024 14:21:07 322 140-400 (K /uL) Final MPV 10/11/2024 14:21:07 9.3 6.6-11.1 ( fL) Final Performing Location [facility] [address]
--- OUTSIDE RECORDS SUMMARY | 2024-10-12 08:42 | External Medical Summary ---
Author Name Unknown Address Unknown Organization [id number][facility] [place] [address] Laboratory Report Ordering Provider Test Date Status WHITNEY SOOD 10/04/2024 14:31:05 Final Observation Date Value Abnormality Reference (Units ) Status Phosphate 10/04/2024 14:31:05 3.6 2.5-4.8 (m g/dL) Final Performing Location [facility] [place] [address]
--- OUTSIDE RECORDS SUMMARY | 2024-10-12 08:42 | External Medical Summary ---
Author Name Unknown Address Unknown Organization [id number]:[facility] [address] Laboratory Report Ordering Provider Test Date Status DO DIANELUCIANKELL 10/11/2024 14:21:07 Final Observation Date Value Abnormality Reference (Units ) Status SYNC LEUKOCYTES IN BLOOD BY AUTOMATED COUNT 10/11/2024 14:21:07 6.37 4.00-10.80 (K/uL) Final Segs 10/11/2024 14:21:07 61.5 40.0-75.0 (%) Final Lymphs % 10/11/2024 14:21:07 26.7 18.0-42.0 (%) Final Monos 10/11/2024 14:21:07 10.8 1.0-11.0 (%) Final Eosinophils 10/11/2024 14:21:07 0.8 0.0-6.0 (%) Final Basos 10/11/2024 14:21:07 0.2 0.0-2.0 (%) Final Absolute Segs 10/11/2024 14:21:07 3.92 1.80-7.70 (K/uL) Final Lymphs, absolute 10/11/2024 14:21:07 1.70 1.00-4.80 (K/ul) Final Monos, Abs 10/11/2024 14:21:07 0.69 0.00-1.10 (K/uL) Final Eos, Abs 10/11/2024 14:21:07 0.05 0.00-0.70 (K/uL) Final Basos, Abs 10/11/2024 14:21:07 0.01 0.00-0.20 (K/uL) Final Performing Location [facility] [place] [address]
--- OUTSIDE RECORDS SUMMARY | 2024-10-12 08:42 | External Medical Summary ---
Author Name Unknown Address Unknown Organization [id number] [place] [address] Laboratory Report Ordering Provider Test Date Status WHITNEY SOOD 10/04/2024 14:31:05 Final Observation Date Value Abnormality Reference (Units ) Status BUN 10/04/2024 14:31:05 8 6-20 (mg/dL) Final Creatinine 10/04/2024 14:31:05 0.8 0.5-1.0 (mg/dL) Final Glomerular filtration rate/1.73 sq M.predicted [Volume Rate/Area] in Serum, Plasma or Blood by Creatinine-based formula (CKD-EPI) 10/04/2024 14:31:05 82 >=60 (mL/min) Final eGFR is calculated based on the CKD-EPI 2020 equation. Sodium 10/04/2024 14:31:05 140 135-146 (m mol/L) Final Potassium 10/04/2024 14:31:05 3.5 3.5-5.1 (m mol/L) Final Cl 10/04/2024 14:31:05 100 98-107 (mm ol/L) Final CO2 10/04/2024 14:31:05 28 22-32 (mmo l/L) Final Anion gap 10/04/2024 14:31:05 12 7-15 (mmol /L) Final Glucose 10/04/2024 14:31:05 107 70-120 (mg /dL) Final Calcium 10/04/2024 14:31:05 10.1 8.4-10.2 ( mg/dL) Final Performing Location [facility] [place] [address]
[2024-10-12] MEDS: ENOXAPARIN INJ 40 MG/0.4 ML SYR SQ SCH (08:44)
--- NOTE | 2024-10-12 09:48 | Cardiology Consultation ---
Date of Consultation October 12, 2024 Assessment & Plan (1) Acute heart failure with preserved ejection fraction: (2) Tachycardia: (3) Hypokalemia: (4) Weakness: Plan 59-year-old female presents with weakness, hypokalemia, progressive edema and weight gain. Hypokalemia likely due to chronic hydrochlorothiazide use. Recommendations: * IV Lasix 20 mg twice daily. * Repeat potassium level ordered stat, supplement as indicated. * Maintain serum potassium greater than 4.0 and serum magnesium greater than 2.0. * PO magnesium oxide oredered. * Add metoprolol 25 mg twice daily. * Review echocardiogram when available. * Consider nephrology consultation if hypokalemia persists despite supplementation. * Outpatient stress testing. Silvano Martines DO, [facility] History of Present Illness Reason for Consultation: possible Hfpef, ? stress test Requesting Physician: Dr. Fortune Attending Physician: Francis Rodriguez DO History of Present Illness The emergency department with 3 to 4 weeks of progressive fatigue and dyspnea on exertion. Notes edema of bilateral lower extremities, left greater than right. No evidence of DVT per duplex. Denies orthopnea or PND, however, unable to lay flat at night due to chronic back pain. Previously followed by cardiology due to atypical chest pain. Continues to note occasional episodes of "poking" as well as "sharp and stabbing" chest pains that last a few seconds. Denies exertional chest heaviness or tightness. Significant hypokalemia noted on admission. Hydrochlorothiazide placed on hold and patient has received both IV and oral potassium supplementation. Repeat potassium level was not performed this a.m. due to hemolysis. Borderline elevated heart rate noted on telemetry with sinus rhythm and sinus tachycardia, heart rate 95 to 100 bpm. Preliminary review of bedside echo demonstrates preserved LV systolic function. Allergies Allergy/AdvReac Type Severity Reaction Status Date / Time No Known Allergies Allergy Verified 10/02/24 15:34 Home Medications Medication Instructions Recorded Confirmed Type losartan 50 mg tablet 50 mg PO DAILY 12/27/20 10/11/24 History rosuvastatin 20 mg tablet 20 mg PO DAILY 12/27/20 10/11/24 History albuterol sulfate 90 mcg/actuation 2 inh inhalation Q6H #18 grams 10/02/24 10/11/24 Rx aerosol inhaler hydrochlorothiazide 25 mg tablet 25 mg PO DAILY 10/02/24 10/11/24 History potassium chloride 20 mEq 20 meq PO DAILY #7 tabs 10/02/24 10/11/24 Rx tablet,extended release tirzepatide (weight loss) 7.5 7.5 mg subcut WK 10/02/24 10/11/24 History mg/0.5 mL subcutaneous pen injector (Zepbound) Patient History Medical History Obesity Surgical History H/O tubal ligation Social History Smoking Status: Never smoker Second Hand Exposure: No; Do You Dip or Chew Tobacco: No; Hx Alcohol Use: No Hx Substance Use: No Preferred Language: Maltese Communication Ability: Effective Communication Tools: IPad Banquet Manager Required: No Beliefs That Will Affect Care: None Current Living Situation: Alone Feels Safe at Home: Yes Review of Systems Review of Systems: All systems reviewed & are unremarkable except as noted in Subjective Physical Exam Constitutional: well nourished, + ill appearing and + obese; no acute distress Respiratory: no respiratory distress and no labored breathing Auscultation: + diminished lung sounds (Bilateral) and + rales (Scant rales at bases bila teral); no rhonchi and no wheezes Cardiovascular: Rate/Rhythm: regular rate, regular rhythm and + tachycardic Heart Sounds: normal S1 and normal S2; no murmur Vessels: no JVD (Difficult to assess due to body habitus) and no carotid bruit Extremities: + edema (1+ B/L pedal and ankle edema, L>R) Gastrointestinal (Abdomen): Inspection/Auscultation: normal bowel sounds; abdomen not distended Percussion/Palpation: abdomen nontender, no guarding, abdomen not rigid and + abdomen not soft Neurologic: CN's II-XI intact bilaterally and moves all extremities; no focal motor deficits Results & Data Vital Signs (Past 12 Hours) Vital Signs Temp Pulse Pulse Resp BP Pulse Ox O2 Del Method 10/12/24 08:02 36.6 C 94 H 20 131/78 94 Room Air 10/12/24 07:17 100 H 10/12/24 02:39 36.8 C 103 H 12 128/73 94 Room Air 10/11/24 23:49 36.4 C L 108 H 19 143/77 H 95 Room Air Laboratory Results Cardiac Enzymes 10/11/24 Range/Units 19:15 AST 40 H (13-39) U/L Troponin I High Sens 6.5 (0-14) pg/ml B-Natriuretic Peptide 5 (0-100) pg/ml Coagulation 10/11/24 Range/Units 19:15 PT 10.5 (9.0-12.0) Seconds APTT 26 (21-31) Seconds B-Natriuretic Peptide 5 (0-100) pg/ml CBC 10/11/24 Range/Units 19:15 WBC 6.90 (4.8-10.8) K/ul RBC 4.64 (4.20-5.40) M/uL Hgb 14.5 (12.0-16.0) g/dl Hct 41.6 (37.0-47.0) % Plt Count 340 (130-400) K/uL Neut # (Auto) 4.41 (1.40-6.50) K/uL Lymph # (Auto) 1.61 (1.20-3.40) K/uL Harris # (Auto) 0.78 H (0.11-0.59) K/uL Eos # (Auto) 0.03 (0.00-0.50) K/uL Baso # (Auto) 0.04 (0.00-0.20) K/uL Comprehensive Metabolic Panel 10/11/24 10/12/24 Range/Units 19:15 06:35 Sodium 137 138 (136-145) mmol/L Potassium 2.9 L TNP (3.5-5.1) mmol/L Chloride 100 102 (98-107) mmol/L Carbon Dioxide 28 28 (21-32) mmol/L BUN 8 6 (6-23) mg/dl Creatinine 0.95 0.70 (0.6-1.2) mg/dl Glucose 149 H 111 H (70-99(Fasting)) mg/dl Calcium 9.2 8.8 (8.6-10.3) mg/dl AST 40 H (13-39) U/L ALT 44 (7-52) U/L Alkaline Phosphatase 62 (34-104) U/L Total Protein 6.9 (6.0-8.3) gm/dl Albumin 3.9 (3.4-5.0) gm/dl Intake and Output 10/11/24 10/12/24 10/12/24 22:59 06:59 14:59 Intake Total 100 / 350 250 / 350 Balance 100 / 350 250 / 350 Intake: IV 100 / 100 Potassium Chloride / Wtr 10 meq 100 / 100 In 100 ml @ 100 mls/hr IV ONE ONE Rx#:[id number] Oral 250 / 250 Other: # Unmeasured Voids 2 Weight 132.5 kg 131.723 kg Weight Measurement Method Chair Scale Built in [facility]
[2024-10-12] MEDS: LOSARTAN POTASSIUM 50 MG TAB PO SCH (10:22)
[2024-10-12] MEDS: ROSUVASTATIN CALCIUM 20 MG TAB PO SCH (10:22)
[2024-10-12] MEDS: METOPROLOL TARTRATE 25 MG TAB PO SCH (11:36)
[2024-10-12] MEDS: MAGNESIUM OXIDE 400 MG TAB PO SCH (11:36)
--- OUTSIDE RECORDS SUMMARY | 2024-10-12 11:52 | External Medical Summary | Summary of Care ---
Author Name Unknown Organization [facility] Address [address] [place] [address] Phone [phone] Care Team Providers Care Prep Room Supervisor Name Role Phone Tavares Red MD Primary Care Provider + Reason for Visit * Reason Comments Emergency Department Follow-Up Encounter Details Date Type Department Care Team (Late st Contact Info) Description 10/11/2024 2:00 PM EDT Office Visit General Internal Medicine [facility] [address] [place] [address] Tavares Red MD [address] [place] [address] Tachycardia*; DYER (dyspnea on exertion); Hypokalemia Allergies No known active allergiesdocumented as of this encounter (statuses as of 10/11/2024) Medications SURGICAL COMPRESSION STOCKING 20 to 30mm knee [...] skin once a week. 2 mL 1 8:30 AM EDT 09/25/19 25 Active Additional Information Patient not taking.Reported on 10/11/2024 Tylenol 325 MG Oral Capsule (Acetaminophen) Take by mouth. Active Vitamin E 200 UNIT Oral Tablet Take by mouth. 025 Discontin ued(Medic ation List Clean Up) NATURAL SUPPLEMENT Take by mouth daily. omega 3 025 Discontin ued(Medic ation List Clean Up) documented as of this encounter (statuses as of 10/11/2024) Active Problems Problem Noted Date Diagnosed Date [...] as of this encounter (statuses as of 10/11/2024) Resolved Problems Problem Noted Date Diagnosed Date [...] as of this encounter (statuses as of 10/11/2024) Immunizations Name Administration Dates Next Due TDAP [...] money to buy more. Never true 08/18/19 Within the past 12 months, t he [...] on file documented as of this encounter Last Filed Vital Signs Vital Sign Reading Time Taken Comments Blood Pressure 102/60 10/11/2024 1:58 PM EDT Pulse 106 10/11/2024 1:58 PM EDT Temperature 37.5 °C (99.5 °F) 10/11/2024 1:58 PM ED T Respiratory Rate 20 10/11/2024 1:58 PM EDT Oxygen Saturation 97% 10/11/2024 1:58 PM EDT Inhaled Oxygen Concentration - - Weight 132.8 kg (292 lb 12.8 oz) 10/11/2024 1:58 PM EDT Height - - Body Mass Index 46.55 08/23/2024 2:12 PM EST documented in this encounter Progress Notes * Tavares Red MD - 10/11/2024 2:14 PM EDT Chief Complaint Patient presents with Emergency Department Follow-Up SUBJECTIVE: uSha Basilio is a 59 year old female with PMH as below who presents for ER follow up. Was at [facility] ER on 10/02/24 for dyer, tachycardia that started about a week prior. No fevers, chills, cough, cp when heart rate fast. She had labs, EKG, and CT angio, told ok except potassium low, repleted. She is feeling worse. HR to 120's or higher at home, chest pressure when that high ,but not otherwise. No increasing edema, fevers, chills, but feels weak. No falls. History and physical done with voice only Language Line [employer]. Patient Active Problem List Diagnosis Asymptomatic microscopic hematuria ABIGAIL III (cervical intraepithelial neoplasia grade III) with severe dysplasia Diastolic dysfunction Essential hypertension with goal blood pressure less than 130/80 Mixed hyperlipidemia History of Helicobacter pylori infection Prediabetes Body mass index (BMI) of 45.0 to 49.9 in adult (HCC) Fatty liver Closed fracture of medial plateau of left tibia Insufficiency fracture Current Outpatient Medications Medication Sig Dispense Refill Losartan Potassium 50 MG Oral Tablet (Cozaar) TAKE 1 TABLET BY MOUTH ONCE DAILY 90 Tablet 3 hydroCHLOROthiazide 25 MG Oral Tablet (Hydrodiuril) TAKE 1 TABLET BY MOUTH EVERY MORNING 90 Tablet 1 Rosuvastatin Calcium 20 MG Oral Tablet (Crestor) TAKE 1 TABLET BY MOUTH ONCE DAILY 90 Tablet 3 Tylenol 325 MG Oral Capsule (Acetaminophen) Take by mouth. SURGICAL COMPRESSION STOCKING 20 to 30mm knee high compression bilateral legs (Patient not taking: Reported on 05/25/2024) 2 Each 2 PreserVision AREDS 2+Multi Vit Oral Capsule Take 1 Capsule by mouth in the morning and 1 Capsule before bedtime. (Patient not taking: Reported on 08/23/2024) Zepbound 7.5 MG/0.5ML Subcutaneous Solution Auto-injector (Tirzepatide-Weight Management) Inject 7.5 mg under the skin once a week. (Patient not taking: Reported on 10/11/2024) 2 mL 1 No current facility-administered medications for this visit. Review of patient's allergies indicates: No Known Allergies Health Maintenance Due Topic Date Due Hepatitis B Vaccine (1 of 3 - 19+ 3-dose series) Never done Pneumococcal Vaccine: 50+ Years (1 of 2 - PCV) Never done Mammogram Never done Zoster Vaccines (1 of 2) Never done Cervical Cancer Screening 05/18/2020 COVID-19 Vaccine ( - 2023- season) Never done Colorectal Cancer Screening 03/31/2024 ROS: CONSTITUTIONAL: No fevers, sweats, or chills PULMONARY: No cough, sputum, or hemoptysis, No wheezing, and No rales CARDIOVASCULAR: , No orthopnea, No paroxysmal nocturnal dyspnea, No edema, No palpitations, and No syncope GASTROINTESTINAL: No abdominal pain, No change in bowel habits, No significant heartburn, No significant change in appetite, and No nausea, vomiting, diarrhea, or constipation ALL OTHER SYSTEMS NEGATIVE I reviewed social, PMH, PSH, and family history and updated where needed. 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 [place] Tobacco Use Smoking status: Never Smokeless tobacco: Never Vaping Use Vaping status: Never Used Substance and Sexual Activity Alcohol use: No Drug use: No Sexual activity: Yes control/protection: Surgical Comment: BTL Other Topics Concern Not on file Social History Narrative Not on file Social Needs Financial Resource Strain: Not on file Food Insecurity: No Food Insecurity (08/18/2022) Hunger Vital Sign Worried About Running Out of Food in the Last Year: Never true Ran Out of Food in the Last Year: Never true Transportation Needs: Not on file Social Connections: Not on file Housing Stability: Not on file Past Medical History: Diagnosis Date Abnormal biliary HIDA scan 2020 - saw surgery, was deferred Closed fracture of glenoid cavity and neck of left scapula with routine healing Diastolic dysfunction 05/08/2020 Hypertension goal BP (blood pressure) < 140/90 05/08/2020 Hypothyroidism due to acquired atrophy of thyroid 09/08/2022 Mixed hyperlipidemia 05/18/2020 Prediabetes 03/16/2023 Past Surgical History: Procedure Laterality Date EGD, FLEXIBLE, DIAGNOSTIC 01/14/2023 gastritis/biopsies show H pylori/ESOPHAGOGASTRODUODENOSCOPY (EGD), FLEXIBLE, TRANSORAL, DIAGNOSTIC performed by Kellie Felder MD at ENDOSCOPY [facility] LIGATE/CUT OVIDUCT(S) REMOVAL OF TONSILS, UNDER AGE 12 06/2004 Family History Problem Relation Name Age of Onset Hypertension Grandmother (Maternal) Other (cirrosis) Grandmother (Maternal) cancer liver Thyroid Disorder Grandmother (Paternal) Other (Parkinsons) Father OBJECTIVE: PHYSICAL EXAM: BP 102/60 | Pulse 106 | Temp 99.5 °F (37.5 °C) (Tympanic) | Resp 20 | Wt 292 lb 12.8 oz (132.8 kg) | LMP 08/22/2018 (Approximate) | SpO2 97% | BMI 46.55 kg/m² | BSA 2.5 m² General: alert, healthy, and no distress Head: Normocephalic, No masses, lesions, or abnormalities Eye Exam: conjunctiva are pink and non-injected, sclera clear Ears: External ears normal, Canals clear, TM's Normal Heart: no murmur, no gallops, tachycardia, PMI non-displaced, S-1 normal, and S- 2 normal Lungs: normal respiratory rate and rhythm, lungs clear to auscultation Psych: normal affect, no flight of ideas or tangential thought, good eye contact, no pressured speech 10/02/24 CT Angio: 1. Unremarkable CTA of the chest. 2. No right hilar mass or lymphadenopathy. Radiographic abnormality described was a summation density. ER notes: There is no leukocytosis or concerning anemia. There is a normal platelet count. No coagulopathy. Potassium was somewhat low at 2.8, no renal failure. No concerning liver enzyme elevation. The patient appeared to be in a euthyroid state. ECG showed a sinus tachycardia, no dysrhythmia or ST elevation. Cardiac enzyme testing x 1 was not consistent with acute cardiac injury. Respiratory bio fire wasnegative. Chest x-ray showed a full right hilum but no focal pneumonia. Urinalysis did not show findings of infection. On exam, the patient was somewhat tachycardic. Her lungs were clear although diminished. She was not hypoxic or toxic. Chest CT did not show a mass, pneumonia or PE. Patient was given 1 L of IV saline for hydration. She was given oral and IV potassium. She receivedalbuterol via MDI. The patient is feeling improved, her heart rate has decreased, she is resting comfortably. I do think the patient is safe for discharge. No emergent findings today. Her dyspnea is likely multifactorial. Escalation of care was considered but seemed unnecessary. The patient will be discharged on albuterol to help with bronchospasm. She will be on potassium to boost this value. She will talk with her prescribing doctor about her Zepbound use and her symptoms today. She will stay well-hydrated. She will return to our ER for any worsening breathing or any worsening chest pain. ASSESSMENT: (R00.0) Tachycardia (primary encounter diagnosis) (R06.09) DYER (dyspnea on exertion) (E87.6) Hypokalemia PLAN: Tachycardia (Primary) - LYME DISEASE ANTIBODY SCREEN WITH REFLEX TO CONFIRMATION; Future; Expected date: 10/11/2024 Worsening, explained given worsen, tachycardia, should go back to ER and she is agreeable, may go tomorrow, doesn't want to go right now, expressed importance of sooner to make sure no serious issue Check labs today as above and below She will consider er Follow DYER (dyspnea on exertion) - BASIC METABOLIC PANEL; Future; Expected date: 10/11/2024 - MAGNESIUM; Future; Expected date: 10/11/2024 - CBC WITH WBC DIFFERENTIAL; Future; Expected date: 10/11/2024 Hypokalemia - BASIC METABOLIC PANEL; Future; Expected date: 10/11/2024 - MAGNESIUM; Future; Expected date: 10/11/2024 - CBC WITH WBC DIFFERENTIAL; Future; Expected date: 10/11/2024 - LYME DISEASE ANTIBODY SCREEN WITH REFLEX TO CONFIRMATION; Future; Expected date: 10/11/2024 Follow Up: Return if symptoms worsen or fail to improve and as scheduled., for Labs Today. | For: Labs Today Tavares Red MD documented in this encounter Nursing Notes * Maile Elizabeth LPN - 10/11/2024 1:58 PM EDT Patient says last week she went to the hospital for rapid breathing and heart rate >100. Patientstates they did blood work and told her that her potassium was low. They gave her potassium in the ED. Patient thought she would feel better after the ED visit but says she's gotten worse. With walking her HR can get up to 115 and she has trouble breathing. She also has dry mouth so she drinks a lot of water. documented in this encounter Plan of Treatment Upcoming Encounters Date Type Department Care Team (Late st Contact Info) Description 10/26/2024 9:30 AM EDT Office Visit Orthopaedics [facility] [address] [place] [phone] Lisandro Ngo MD [address] [place] [phone] 11/29/2024 2:30 PM EDT [facility] [place] [address] [place] [phone] Constantino Rasheed DO [address] [facility] [place] [address] 12/20/2024 2:40 PM EDT Office Visit Nutrition & Weight Management, [facility] [address] [place] [phone] Blanca Thompson MD [address] [place] [address] 01/23/2025 12:40 PM EDT Office Visit General Internal Medicine [facility] [address] [facility] [place] [address] Tavares Red MD [address] [place] [address] Pending Results Name Type Priority Associated Diagnoses Date /Time LYME DISEASE ANTIBODY SCREEN WITH REFLEX TO CONFIRMATION Lab Routine Tachycardia Hypokalemia 10/11/2024 2:21 PM EDT Scheduled Orders Name Type Priority Associated Diagnoses Orde r Schedule LYME DISEASE ANTIBODY SCREEN WITH REFLEX TO CONFIRMATION Lab Routine Tachycardia Hypokalemia Expected: 10/11/2024 (Approximate), Expires: 10/11/2025 Health Maintenance Due Date Last Done Comments Hepatitis B Vaccine (1 of 3 - 19+ 3-dose series) 1984 Pneumococcal Vaccine: 50+ Years (1 of 2 - PCV) 1984 HPV/Co-Test 1995 Mammogram 2005 Cologuard 2010 Colonoscopy 2010 Sigmoidoscopy 2010 Zoster Vaccines (1 of 2) 2015 Cervical Cancer Screening 05/18/2020 Pap Smear 05/18/2020 05/18/2017 COVID-19 Vaccine ( - season) 2024 Colorectal Cancer Screening 03/31/2024 Fecal Occult Blood Test 03/31/2024 03/31/20, 05/06/2017, 10/29/2015 Depression Screening 01/03/2025 01/04/2024 Influenza Vaccine (FLU shot) (Season Ended) 2025 Albumin/Creatinine Ratio 05/28/2025 05/28/2022 HbA1c 07/26/2025 07/26/2024, 02/10, 08/28/2021 GFR 10/11/2025 10/11/2024, 09/09, 08/10/2024, Additional history exists DTap/Tdap Vaccines (2 - [...] Not on filedocumented as of this encounter Results * MAGNESIUM (10/11/2024 2:21 PM EDT) Magnesium 1.8 1.5 - 2.6 mg/dL 10/11/2024 3:45 PM EDT [facility] 56-02 Blood Venous blood specimen / Unknown Venipuncture / Unknown 10/11/2024 2:21 PM EDT 10/11/2024 2:21 PM EDT Tavares Red MD LAB BLOOD ORDERABLES Fin al Result [facility] [address] [place] [address] * (ABNORMAL) BASIC METABOLIC PANEL (10/11/2024 2:21 PM EDT) Pathologist [facility] BUN 8 6 - 20 mg/dL 10/11/2024 3:45 PM EDT [facility] 56 CREATININE 0.8 0.5 - 1.0 mg/dL 10/11/2024 3:45 PM EDT [facility] 56 EGFR 87 >=60 mL/min 10/11/2024 3:45 PM EDT [facility] 56 Comment:eGFR is calculated b ased on the CKD-EPI 2020 equation. SODIUM 140 135 - 146 mmol/L 10/11/2024 3:45 PM EDT [facility] 56 POTASSIUM 3.1(L) 3.5 - 5.1 mmol/L 10/11/2024 3:45 PM EDT [facility] 56 CHLORIDE 98 98 - 107 mmol/L 10/11/2024 3:45 PM EDT [facility] 56 CO2 31 22 - 32 mmol/L 10/11/2024 3:45 PM EDT [facility] 56 ANION GAP 11 7 - 15 mmol/L 10/11/2024 3:45 PM EDT [facility] 56 GLUCOSE 163(H) 70 - 120 mg/dL 10/11/2024 3:45 PM EDT [facility] 56 CALCIUM 9.9 8.4 - 10.2 mg/dL 10/11/2024 3:45 PM EDT [facility] 56 Blood Venous blood specimen / Unknown Venipuncture / Unknown 10/11/2024 2:21 PM EDT 10/11/2024 2:21 PM EDT Tavares Red MD LAB BLOOD ORDERABLES Fin al Result [facility] 56[facility]02 [facility] [address] documented in this encounter Visit Diagnoses Diagnosis Tachycardia- Primary Tachycardia, unspecified DYER (dyspnea on exertion) Other dyspnea and respiratory abnormality Hypokalemia Hypopotassemia documented in this encounter Care Teams Prep Room Supervisor Relationship Specialty Start Date End Date [facility]avares Red MD [address] [facility] [address] PCP - General Internal Medicine 11/09/17 documented as of this encounter"
--- OUTSIDE RECORDS SUMMARY | 2024-10-12 11:52 | External Medical Summary | Summary of Care ---
Author Name Unknown Organization [facility] Address [address] [place] [address] Phone [phone] Care Team Providers Care [employer] Teacher Name Role Phone Tavares Red MD Primary Care Provider + Reason for Visit * Reason Comments Outpatient Testing Encounter Details Date Type Department Care Team (Late st Contact Info) Description 10/11/2024 2:20 PM EDT Laboratory Laboratory [facility] [address] [place] [phone] [place], [address] [place] [address] DUGAN (dyspnea on exertion); Hypokalemia; Tachycardia Allergies No known active allergiesdocumented as of [...] 09/25/2024 8:30 AM EDT 09/25/19 25 Active Additional Information Patient not taking.Reported on 10/11/2024 Tylenol 325 MG Oral Capsule (Acetaminophen) Take by mouth. Active documented as of this encounter (statuses [...] 10/26/2024 9:30 AM EDT Office Visit Orthopaedics [facility] [address] [place] [phone] Lisandro Ngo MD [address] [place] [phone] 11/29/2024 2:30 PM EDT Office Visit Orthopaedics [facility] [address] [place] [phone] Constantino Rasheed DO [address] [place] [address] 12/20/2024 2:40 PM EDT Office Visit Nutrition & Weight Management, [facility] [address] [place] [phone] Blanca Thompson [facility] [address] [facility] [address] 01/23/2025 12:40 PM EDT Office Visit General Internal Medicine [facility] [address] [facility] [place] [address] Tavares Red MD [address] [facility] [place] [address] Pending Results Name Type Priority Associated Diagnoses Date /Time LYME DISEASE ANTIBODY SCREEN WITH REFLEX TO CONFIRMATION Lab Routine Tachycardia Hypokalemia 10/11/2024 2:21 PM EDT LYME DISEASE ANTIBODY SCREEN Lab Routine Tachycardia Hypokalemia 10/11/2024 2:21 PM EDT Health Maintenance Due Date Last Done Comments [...] Screening 03/31/2024 Fecal Occult Blood Test 03/31/2024 03/31/20 23, 05/06/2017, 10/29/2015 Depression Screening 01/03/2025 01/04/2024 Influenza Vaccine (FLU shot) (Season Ended) 2025 Albumin/Creatinine Ratio 05/28/2025 05/28/2022 HbA1c 07/26/2025 07/26/2024, 08, 08/28/2021 GFR 10/11/2025 10/11/2024, 09/09, 08/10/2024, Additional [...] Procedure Name Priority Date/Time Associated Diagnosis Comments DIFFERENTIAL, AUTOMATED Routine 10/11/2024 2:21 PM EDT DUGAN (dyspnea on exertion) Hypokalemia BASIC METABOLIC PANEL Routine 10/11/2024 2:21 PM EDT DUGAN (dyspnea on exertion) Hypokalemia CBC Routine 10/11/2024 2:21 PM EDT DUGAN (dyspnea on exertion) Hypokalemia CBC Routine 10/11/2024 2:21 PM EDT DUGAN (dyspnea on exertion) Hypokalemia MAGNESIUM Routine 10/11/2024 2:21 PM EDT DUGAN (dyspnea on exertion) Hypokalemia documented in this encounter Results * DIFFERENTIAL, AUTOMATED (10/11/2024 2:21 PM EDT) WBC 6.37 4.00 - 10.80 K/uL 10/11/2024 2:32 PM EDT [facility] 56-02 Neutrophils % 61.5 40.0 - 75.0 % 10/11/2024 2:32 PM EDT [facility] 56-02 Lymphocytes % 26.7 18.0 - 42.0 % 10/11/2024 2:32 PM EDT [facility] 56-02 Monocytes % 10.8 1.0 - 11.0 % 10/11/2024 2:32 PM EDT [facility] 56-02 Eosinophils % 0.8 0.0 - 6.0 % 10/11/2024 2:32 PM EDT [facility] Basophils % 0.2 0.0 - 2.0 % 10/11/2024 2:32 PM EDT [facility] Absolute Neutrophils 3.92 1.80 - 7.70 K/uL 10/11/2024 2:32 PM EDT [facility] Absolute Lymphocytes 1.70 1.00 - 4.80 K/ul 10/11/2024 2:32 PM EDT [facility] Absolute Monocytes 0.69 0.00 - 1.10 K/uL 10/11/2024 2:32 PM EDT [facility] Absolute Eosinophils 0.05 0.00 - 0.70 K/uL 10/11/2024 2:32 PM EDT [facility] Absolute Basophils 0.01 0.00 - 0.20 K/uL 10/11/2024 2:32 PM EDT [facility] Blood Venous blood specimen / Unknown Venipuncture / Unknown 10/11/2024 2:21 PM EDT 10/11/2024 2:21 PM EDT us Tavares Red MD LAB BLOOD ORDERABLES Fin al Result [facility] [address] [place] [address] * CBC (10/11/2024 2:21 PM EDT) WBC 6.37 4.00 - 10.80 K/uL 10/11/2024 2:32 PM EDT [facility] RBC 4.55 3.85 - 5.15 M/uL 10/11/2024 2:32 PM EDT [facility] HGB 14.7 12.0 - 15.3 g/dL 10/11/2024 2:32 PM EDT [facility] HCT 43.2 36.0 - 45.2 % 10/11/2024 2:32 PM EDT [facility] MCV 94.9 81.5 - 97.5 fL 10/11/2024 2:32 PM EDT [facility] 56 MCH 32.3 27.0 - 34.0 pg 10/11/2024 2:32 PM EDT [facility] 56 MCHC 34.0 32.0 - 36.0 g/dL 10/11/2024 2:32 PM EDT [facility] 56 RDW 12.6 11.5 - 15.5 % 10/11/2024 2:32 PM EDT [facility] 56 PLT 322 140 - 400 K/uL 10/11/2024 2:32 PM EDT [facility] 56 MPV 9.3 6.6 - 11.1 fL 10/11/2024 2:32 PM EDT [facility] Blood Venous blood specimen / Unknown Venipuncture / Unknown 10/11/2024 2:21 PM EDT 10/11/2024 2:21 PM EDT Tavares Red MD LAB BLOOD ORDERABLES Fin al Result [facility] [address] [place] [address] * MAGNESIUM (10/11/2024 2:21 PM EDT) Magnesium 1.8 1.5 - 2.6 mg/dL 10/11/2024 3:45 PM EDT [facility] Blood Venous blood specimen / Unknown Venipuncture / Unknown 10/11/2024 2:21 PM EDT 10/11/2024 2:21 PM EDT Tavares Red MD LAB BLOOD ORDERABLES Fin al Result [place] [address] [address] [place] [address] * (ABNORMAL) BASIC METABOLIC PANEL (10/11/2024 2:21 PM EDT) BUN 8 6 - 20 mg/dL 10/11/2024 3:45 PM EDT [facility] 56 CREATININE 0.8 0.5 - 1.0 mg/dL 10/11/2024 3:45 PM EDT [facility] 56 EGFR 87 >=60 mL/min 10/11/2024 3:45 PM EDT [facility] 56 Comment:eGFR is calculated b ased on the CKD-EPI 2020 equation. SODIUM 140 135 - 146 mmol/L 10/11/2024 3:45 PM EDT [facility] 56 POTASSIUM 3.1(L) 3.5 - 5.1 mmol/L 10/11/2024 3:45 PM EDT [facility] 56 CHLORIDE 98 98 - 107 mmol/L 10/11/2024 3:45 PM EDT [address] CO2 31 22 - 32 mmol/L 10/11/2024 3:45 PM EDT [facility] 56 ANION GAP 11 7 - 15 mmol/L 10/11/2024 3:45 PM EDT [facility] 56 GLUCOSE 163(H) 70 - 120 mg/dL 10/11/2024 3:45 PM EDT [facility] 56 CALCIUM 9.9 8.4 - 10.2 mg/dL 10/11/2024 3:45 PM EDT [facility] 56 Blood Venous blood specimen / Unknown Venipuncture / Unknown 10/11/2024 2:21 PM EDT 10/11/2024 2:21 PM EDT us Tavares Red MD LAB BLOOD ORDERABLES Fin al Result [facility] [address] documented in this encounter Visit Diagnoses Diagnosis DUGAN (dyspnea on exertion) Other dyspnea and respiratory abnormality Hypokalemia Hypopotassemia Tachycardia Tachycardia, unspecified documented in this encounter Care Teams [employer] Teacher Relationship Specialty Start Date End Date [facility]res Red MD [facility] [address] PCP - General Internal Medicine 11/09/17 documented as of this encounter
--- NOTE | 2024-10-12 13:12 | Hospitalist Progress Note ---
Date of Service October 12, 2024 Assessment & Plan (1) Acute heart failure with preserved ejection fraction: (2) Regular sinus tachycardia: (3) Hypokalemia: (4) Morbid obesity: Plan Patient presents with constellation of symptoms consistent with acute heart failure preserved ejection fraction and symptomatic sinus tachycardia. Reviewed cardiology recommendations, continue diuresis with Lasix and initiation of metoprolol. Monitor patient's response to beta-sandro Replace potassium Follow electrolytes and renal function Echocardiogram pending Reassure patient that her symptoms will improve as she has more fluid removed. Exam and interview was conducted with the assistance of video bradley linebacker crewmember for [employer] language. Admission and Anticipated Discharge Date Admission Date: October 11, 2024 Subjective Patient states she is feeling better. But still concerned about her fatigue and her racing heart with activity that occurred at home. Physical Exam Physical Exam: Constitutional: Alert, nontoxic HEENT: Mucous membranes moist. Lungs: Decreased breath sounds, crackles at bases CV: S1-S2, regular Abdomen: Soft, nontender, nondistended Extremities: Trace to 1+ pretibial edema Neuro: No focal deficits Psych: Cooperative, anxious Results & Data Results & Data Vital Signs (Past 12 Hours) Vital Signs Temp Pulse Pulse Resp BP Pulse Ox O2 Del Method 10/12/24 11:14 36.5 C 97 H 20 125/81 93 Room Air 10/12/24 10:43 Room Air 10/12/24 08:02 36.6 C 94 H 20 131/78 94 Room Air 10/12/24 07:17 100 H 10/12/24 02:39 36.8 C 103 H 12 128/73 94 Room Air Diagnostic Findings Reviewed imaging, laboratory and diagnostic studies. Pertinent findings as below. Recent TSH 3.03 CBC stable Potassium 3.0
[2024-10-13 09:09] LABS: BUN Creatinine Ratio 11.3 (10-20); Calcium 9.2 mg/dl (8.6-10.3); Creatinine Clr Calc Pharmacy 106.6 ml/min; Potassium 3.3 mmol/L (3.5-5.1)
[2024-10-13] MEDS: METOPROLOL TARTRATE 25 MG TAB PO SCH (09:39)
--- NOTE | 2024-10-13 10:33 | Hospitalist Progress Note ---
Date of Service October 13, 2024 Assessment & Plan (1) Acute heart failure with preserved ejection fraction: (2) Regular sinus tachycardia: (3) Hypokalemia: (4) Morbid obesity: (5) Adverse reaction to drug in therapeutic use: Plan Patient with symptomatic sinus tachycardia and some evidence of heart failure with preserved ejection fraction. Seems to responded to some diuresis. Potassium is improving with replacement. Heart rate is improving with beta- sandro control. Reviewed adverse effects of this Zepbound, tachycardia is a known adverse effect. Do suspect that this may be contributing to some of the patient's symptoms. Suspect patient's tachycardia may have led to some volume overload/heart failure. Discontinue losartan due to borderline low blood pressure and to allow titration of metoprolol Increase metoprolol to 37.5 mg twice daily Discontinue IV Lasix, transition to low-dose oral Lasix tomorrow morning Continue potassium supplementation Patient and daughter aware of possible discharge tomorrow with ongoing outpatient follow-up. Had a long discussion with them about a trial of holding her Zepbound. Because it is a long-acting medication and may take her several weeks to know whether the medication was actually causing and contributing to her symptoms. However I believe that holding the medication for a period of time to determine if it is a adverse reaction the benefits outweigh any risks. Admission and Anticipated Discharge Date Admission Date: October 11, 2024 Subjective Patient states she still fatigues easily. Concerned that her heart rate is in the 90s/low 100s even at rest or with minimal activity. Daughter is at the bedside. Patient requests that daughter be used as blending line attendant and declined video interpretation. Daughter who has some experience as a pharmacist public health training assistant raises the question if the patient's Zepbound could be contributing to her symptoms. Apparently she was switched from Ozempic to Zepbound within the last few weeks. Physical Exam Physical Exam: Constitutional: Alert, nontoxic, no acute distress HEENT: Mucous membranes moist. Lungs: Decreased breath sounds, no wheezes, few faint crackles at bases CV: S1-S2, regular Abdomen: Soft, nontender, nondistended Extremities: Trace ankle and pretibial edema Neuro: No focal deficits Psych: Cooperative, slightly anxious Results & Data Results & Data Vital Signs (Past 12 Hours) Vital Signs Temp Pulse Pulse Resp BP Pulse Ox O2 Del Method 10/13/24 09:10 Room Air 10/13/24 07:10 100 H 10/13/24 03:27 36.6 C 98 H 16 118/82 94 Room Air 10/12/24 23:05 36.8 C 88 16 124/80 93 Room Air 10/12/24 23:00 90 Laboratory Results Reviewed imaging, laboratory and diagnostic studies. Pertinent findings as below. Potassium 3.3 Creatinine 0.8 Reviewed echocardiogram report, normal ejection fraction, no significant valvular dysfunction.
[2024-10-13] MEDS: POTASSIUM CHLORIDE CRTAB 20 MEQ TABCR PO STA (11:17)
--- NOTE | 2024-10-13 12:19 | Cardiology Progress Note ---
Date of Service October 13, 2024 Assessment & Plan (1) Acute heart failure with preserved ejection fraction: (2) Tachycardia: (3) Hypokalemia: Plan 59-year-old female presents with weakness, hypokalemia, progressive edema and weight gain. Hypokalemia likely due to chronic hydrochlorothiazide use. Echo with normal LVEF, no significant valvular disease. - feeling better today on exam - appears euvolemic on exam, although difficult to assess due to body habitus - continues to have hypokalemia, consider nephrology referral - continue furosemide IV 20 mg twice daily - can consider addition of spironolactone - 2 gm sodium restriction and 2 L fluid restriction - strict I and Os, daily weights on standing scale - Maintain serum potassium greater than 4.0 and serum magnesium greater than 2.0. - continue metoprolol tartrate, rosuvastatin - follow up with outpatient cardiology, consider outpatient ischemic workup Case discussed with attending physician, further recommendations per Dr. Moran. I spent a total of 40 minutes on the date of service in preparation, delivery, and documentation of the care provided to this patient excluding any time spent in the performance of separately billed services. This visit was a split-shared visit with the substantial portion of the decision making performed by the supervising water/wastewater engineer/billing provider. Admission and Anticipated Discharge Date Admission Date: October 11, 2024 Supervising Physician Co-Signing Physician Notes I spent a total of 30 Luci lady tomorrow she is I think a lot of her symptoms are in her hands minutes on the date of service in preparation, delivery, and documentation of the care provided to this patient, excluding any time spent in the performance of separately billed services. I have personally performed a history and physical examination on the patient. I have reviewed the advance practitioner's documentation, and I agree with, and take responsibility for the plan of care. Subjective 59-year-old female was seen today in cardiology follow-up. [facility] hospital attendant used for visit. States she overall feels better. Still has some mild shortness of breath. Denies chest pain. Main concern is her potassium and renal function. Potassium today 3.3, renal function WNL. Review of Systems Review of Systems: CONSTITUTIONAL: No change in weight, No weakness, No fatigue and No fevers, No sweats or chills. PULMONARY: No cough, sputum, or hemoptysis, No wheezing, No shortness of breath and No recent change in breathing. CARDIOVASCULAR: No chest pain, + dyspnea on exertion, No edema, No palpitations and No syncope. GASTROINTESTINAL: No abdominal pain, No change in bowel habits, No significant heartburn, No nausea, No vomiting, No diarrhea, No constipation, No blood in stools or black tarry stools. No dysphagia. HEMATOLOGIC: No abnormal bleeding and No bruising. NEUROLOGICAL: Normal balance, No headaches and No weakness. Physical Exam Physical Exam: General: No acute distress. A+Ox3. HEENT: Normocephalic. Atraumatic. PERRL. EOMI. Conjunctiva and sclera clear. NECK: No carotid bruits. No JVD. Carotid upstrokes are brisk. Heart: RRR. S1 and S2 noted. No murmur. No rubs or gallops. PMI non displaced. Lungs: Diminished to auscultation. No wheezes. No rhonchi. No rales. Abdomen: Normal bowel sounds. Soft. Nontender. No masses or organomegaly. No abdominal bruits. Extremities: No edema. No clubbing or cyanosis. Pulses: radial=2/4, posterior tibial=2/4, dorsalis pedis = 2/4. NEURO: No focal deficits. PSYCH: Appropriate affect and insight. Results & Data Vital Signs (Past 12 Hours) Vital Signs Temp Pulse Pulse Resp BP Pulse Ox O2 Del Method 10/13/24 11:13 36.4 C L 92 H 20 125/81 91 Room Air 10/13/24 09:10 Room Air 10/13/24 07:10 100 H 10/13/24 03:27 36.6 C 98 H 16 118/82 94 Room Air Laboratory Results Comprehensive Metabolic Panel 10/13/24 Range/Units 08:10 Sodium 141 (136-145) mmol/L Potassium 3.3 L (3.5-5.1) mmol/L Chloride 102 (98-107) mmol/L Carbon Dioxide 34 H (21-32) mmol/L BUN 9 (6-23) mg/dl Creatinine 0.80 (0.6-1.2) mg/dl Glucose 133 H (70-99(Fasting)) mg/dl Calcium 9.2 (8.6-10.3) mg/dl Intake and Output 0410/13/24 10/13/24 22:59 06:59 14:59 Intake Total 460 / 460 Balance 460 / 460 Intake: Oral 460 / 460
[2024-10-13] MEDS: POTASSIUM CHLORIDE CRTAB 20 MEQ TABCR PO ONE (15:37)
[2024-10-14 06:55] LABS: BUN Creatinine Ratio 10.6 (10-20); Calcium 9.5 mg/dl (8.6-10.3); Creatinine Clr Calc Pharmacy 129.3 ml/min; Potassium 3.6 mmol/L (3.5-5.1)
[2024-10-14 08:18] VITALS: O2SAT 94
[2024-10-14] MEDS: POTASSIUM CHLORIDE CRTAB 20 MEQ TABCR PO STA (08:42)
[2024-10-14] MEDS: FUROSEMIDE 20 MG TAB PO SCH (08:44)
[2024-10-14] MEDS: POTASSIUM CHLORIDE CRTAB 20 MEQ TABCR PO SCH (08:44)
--- NOTE | 2024-10-14 10:02 | Discharge Summary ---
Discharge Summary Date of Service October 14, 2024 Principal Dx & Hospital Course #1 = Principal Diagnosis (1) Acute heart failure with preserved ejection fraction: (2) Regular sinus tachycardia: (3) Hypokalemia: (4) Morbid obesity: (5) Adverse reaction to drug in therapeutic use: Plan Patient is a 59-year-old female presented to the emergency room with complaints of shortness of breath, racing heart and abnormal labs performed prior to presentation. Patient was admitted to the hospital for the symptoms. Her potassium was replaced. Hypokalemia most likely due to the use of hydrochlorothiazide. Her evaluation was consistent with uncontrolled hypertension, symptomatic sinus tachycardia and some acute heart failure with preserved ejection fraction. She was given some IV diuresis with Lasix. She was started on metoprolol for her sinus tachycardia. Cardiology consultation was obtained. They agreed with the plans of care. Performed echocardiogram which showed normal ejection fraction, no significant wall motion abnormalities and no evidence of pulmonary pretension. Through the course of her hospitalization she diuresed well. Blood pressures were controlled. And her heart rate showed improved rate control. She diuresed at least 3 kg. Interestingly, in discussion with the patient's daughter at the bedside, the patient had just been transition from Ozempic to Zepbound for her weight control. Reviewing adverse reactions of Zepbound it does indicate that increased heart rate can be a side effect. We discussed this as a possibility contributing to her symptoms. We discussed about the fact that it is a long- acting medication and may take holding the medication for a few weeks to really determine if this was contributing to her symptoms at all, however, we felt that the benefits of holding it and determining whether she was having side effects to this medication outweighed any risks. Recommend she hold the Zepbound and continue to evaluate her symptoms and follow-up with her outpatient providers. On the day of discharge vital signs are stable. Edema had decreased. She was saturating well on room air. Extensive conversation with her and her daughter on the phone reassuring her of all the things we had ruled out here in the hospital or confirmed here in the hospital. The patient requested we use her daughter as an low voltage technician versus the video low voltage technician. She will follow-up with outpatient providers as scheduled. Notes For Next Care Provider Follow-up with cardiology Determine and have ongoing discussion as to whether Zepbound was contributing to her tachycardia and symptoms at all. Medication Changes From Visit Hydrochlorothiazide discontinued Losartan discontinued Metoprolol started for blood pressure and rate control Lasix and Aldactone started for diuresis. Admission HPI Per Admitting Provider History obtained from interview with the patient and chart review Past medical history of prediabetes, hyperlipidemia, hypertension, class III obesity, asymptomatic microscopic hematuria Patient reports that she has been experiencing increasing shortness of breath for last 3 weeks; it has progressed to a point where she gets short of breath on minimal exertion. She also reports some chest discomfort as well intermittently; denies chest pain. She has also noted episode of palpitations when she gets out of breath upto 120bpm. She has also noticed that her lower extremity swelling has increased in last few weeks. She denies any recent travel, viral illness, cough, fever, chills, abdominal pain or urinary symptoms. She had previously presented to the ED on 10/02 with similar concerns. CTA chest and chest x-ray was done which did not show significant finding. She was found to have hypokalemia for which she was given potassium supplement. She went to see her primary care doctor today with similar complaint; was sent to the ED for further workup Last echocardiogram from June 2023; EF of 55 to 60%; grade 1 diastolic dysfunction. Last stress test in May 2020 with myocardial perfusion scan; negative On presentation to the ED, she is normotensive, tachycardic, afebrile and saturating well on room air. Chest x-ray showed mild vascular congestion. BMP showed potassium of 2.9. Patient was given 1 dose of IV Lasix and potassium. Patient was referred for admission. Past surgical history; tonsillectomy Family history; father with Parkinson's, Social history; does not smoke, no alcohol use Medications; rosuvastatin, Geodon, hydrochlorothiazide, losartan Admission Exam Per Admitting Provider See H&P Discharge Exam Constitutional: Alert, obese, nontoxic HEENT: Mucous membranes moist. Lungs: Clear to auscultation, decreased, no wheezes rales or rhonchi CV: S1-S2, regular Abdomen: Soft, nontender, nondistended Extremities: Trace ankle edema, improved Neuro: No focal deficits Psych: Cooperative, normal mood Updated Medication List Medication Instructions Recorded Confirmed Type losartan 50 mg tablet 50 mg PO DAILY 12/27/20 10/11/24 History rosuvastatin 20 mg tablet 20 mg PO DAILY 12/27/20 10/11/24 History albuterol sulfate 90 mcg/actuation 2 inh inhalation Q6H #18 grams 10/02/24 10/11/24 Rx aerosol inhaler hydrochlorothiazide 25 mg tablet 25 mg PO DAILY 10/02/24 10/11/24 History potassium chloride 20 mEq 20 meq PO DAILY #7 tabs 10/02/24 10/11/24 Rx tablet,extended release tirzepatide (weight loss) 7.5 7.5 mg subcut WK 10/02/24 10/11/24 History mg/0.5 mL subcutaneous pen injector (Zepbound) furosemide 20 mg tablet 20 mg PO QAM #30 tabs 10/14/24 Rx metoprolol tartrate 50 mg tablet 50 mg PO BID #60 tabs 10/14/24 Rx (Lopressor) potassium chloride 10 mEq 10 meq PO DAILY #30 caps 10/14/24 Rx capsule,extended release spironolactone 25 mg tablet 25 mg PO DAILY #30 tabs 10/14/24 Rx (Aldactone) Hospital Stay Data Consultations 10/11/24 21:12 ED Decision to Admit Stat 10/12/24 08:00 Consult Cardiology Routine Diagnostic Imagining Performed 10/11/24 19:48 US venous doppler LE BI Stat 10/11/24 22:04 CT angio chest PE protocol Stat Reviewed imaging, laboratory and diagnostic studies. Pertinent findings as below. Potassium 3.6 improved Creatinine 0.66 Glucose of 122 TSH 3.03 Echocardiogram showed ejection fraction 55 to 60%, normal wall motion, no valvular pathology. Pending Results Patient Have Any Pending Studies at Discharge: No Discharge Instructions Given to Patient (Per Discharging Provider) Follow-up with cardiology as coordinated through their office Discusse with your provider if Zepbound is contributing to your symptoms at all and possible alternative therapy Call 911 and go to the Emergency Room if: * You have tightness or pain in your chest that does not go away with rest or Nitroglycerin * You are very short of breath even with rest Call your doctor if any of the following symptoms or problems start or get worse: * Shortness of breath or difficulty breathing * Wake up at night short of breath * Chest pain * Cough * Swelling of your hands, fee, or legs * More fatigued or tired with your normal activity * Palpitations - sudden fast heart beats WEIGHT * Weigh yourself every morning after using the bathroom. * Use the same scale. * Wear the same amount of clothing. * Write your weight down on your chart. * Call your doctor if you gain more than 2-3 pounds in 1-2 days. MEDICATIONS * Use this discharge instruction sheet for instructions. * Take your medications at the time your doctor ordered. * Do not skip a dose of your medicines. * If you miss a dose of medicine, take as soon as possible, but DO NOT DOUBLE A DOSE. * Read your medicine information when you get home. * Know all of the side effects of your medicine. * Call your doctor's office if you have any side effects. * Be sure all of your doctors know what medicine and herbs you take (including cold, flu, and herbal medicine). * Pain Medicine: If you do not get relief from your pain, please call your doctor for help. Take the following with you to your follow-up doctor appointments: * Weight Chart * Medication List * List of questions Do not drink excessive alcohol, beer or wine. A good weight is 130 kg or less Total Time Total Time Spent Total Time Spent (In Minutes): 35
[2024-10-14 11:36] VITALS: BP 118/78; PULSE 87; RESP 20; TEMP 98.1
[2024-10-14] MEDS: LOPERAMIDE HCL 2 MG CAP PO STA (13:23)
== END 2024-10-14 14:58 | disposition home or self-care (01) | DRG 291 ==
LOC: ED 18:54 → 2N 21:49